=== PATIENT | male | born 1950 | race Caucasian/White ===

== ENCOUNTER 2018-02-28 13:13 | Emergency (ER) | payer MEDICARE ==
--- NOTE | 2018-02-28 13:33 | UC ---
Ear Complaint HPI - HPI Summary HPI Summary: Patient is complaining of a several week history of increasing Lasix to both ears he thinks left greater than right. States he's had S[place] his whole life. He denies any pain or drainage from the ears. - History of Current Complaint Stated Complaint: BILAT EAR COMPLAINT Time Seen by Provider: 02/28/18 13:26 Hx Obtained From: Patient Onset/Duration: Gradual Onset Aggravating Factors: Nothing Alleviating Factors: Nothing Associated Signs/Symptoms: Negative: Discharge, Hearing Loss, Foreign Body Sensation, Trauma to Ear, Swelling @ - Allergies/Home Medications Allergies/Adverse Reactions: Allergies Allergy/AdvReac Type Severity Reaction Status Date / Time haloperidol [From Haldol] Allergy Hallucinati Verified 02/28/18 13:31 ons Penicillins Allergy Hives Verified 02/28/18 13:31 quetiapine [From Seroquel] Allergy Diarrhea Verified 02/28/18 13:31 Home Medications: Home Medications Levothyroxine TAB* [Synthroid TAB*] 88 mcg PO DAILY 02/28/18 [History Confirmed 02/28/18] [place] Carbonate [[place] Carbonate 600 mg cap] 600 mg PO BID 02/28/18 [ History Confirmed 02/28/18] clonazePAM [Clonazepam] 2 mg PO DAILY 02/28/18 [History Confirmed 02/28/18] PMH/Surg Hx/FS Hx/Imm Hx Endocrine History: Thyroid Disease Psychological History: Anxiety, Depression - Family History Known Family History: Positive: Cardiac Disease, Diabetes - Social History Occupation: Retired Lives: Alone Substance Use Type: None - Immunization History Vaccination Up to Date: Yes Review of Systems Constitutional: Negative Skin: Negative Eyes: Negative ENT: Negative Respiratory: Negative Cardiovascular: Negative Gastrointestinal: Negative Genitourinary: Negative Motor: Negative Neurovascular: Negative Musculoskeletal: Negative Neurological: Negative Psychological: Negative Is Patient Immunocompromised?: No All Other Systems Reviewed And Are Negative: Yes Physical Exam Triage Information Reviewed: Yes Appearance: Well-Appearing Vital Signs Reviewed: Yes Eyes: Positive: Conjunctiva Clear ENT: Positive: Pharynx normal, Other - CERUMEN IMPACTION au. Negative: Nasal congestion, Nasal drainage Neck: Positive: Supple, Nontender, No Lymphadenopathy Respiratory: Positive: Lungs clear, Normal breath sounds Cardiovascular: Positive: RRR, No Murmur Abdomen Description: Positive: Nontender, No Organomegaly, Soft Bowel Sounds: Positive: Present Musculoskeletal: Positive: ROM Intact Neurological: Positive: Alert Psychological: Positive: Age Appropriate Behavior Skin Exam: Normal Ear Complaint Course/Dx - Course Course Of Treatment: TM's conklin and canals clear post flush - Differential Dx/Diagnosis Provider Diagnoses: CERUMEN IMPACTION au Discharge - Sign-Out/Discharge Documenting (check all that apply): Patient Departure - Discharge Plan Condition: Stable Disposition: HOME Patient Education Materials: Cerumen Impaction (ED) Referrals: Delbert Buckner MD [Primary Care Provider] - If Needed Additional Instructions: Per institutional requirements, I have reviewed the chart, however, I was not consulted specifically or made aware of this patient by the above midlevel provider. I did not personally evaluate, interact with , or disposition this patient. - Billing Disposition and Condition Condition: STABLE Disposition: Home
[2018-02-28 13:41] VITALS: BP 129/76
== END 2018-02-28 14:45 | disposition home or self-care (01) ==
LOC: UCCORT 13:13
DX: H61.23 Impacted cerumen, bilateral (principal); Z88.0 Allergy status to penicillin; Z88.8 Allergy status to other drugs, medicaments and biological substances; E07.9 Disorder of thyroid, unspecified; F41.8 Other specified anxiety disorders
CPT/HCPCS: 99213; G0463

== ENCOUNTER 2018-11-10 08:49 | Emergency (ER) | payer MEDICARE ==
--- OUTSIDE RECORDS SUMMARY | 2018-11-10 09:06 | XMS REPORT | Continuity of Care Document ---
:1950 External Reference #:[id number] Author Name Carina Griffith MD, PHD Address [address] [facility], [address] [place] [address] Care Team Providers Name Role Phone Carina Griffith MD, PHD Care Team Information Net Repairer Unavailable Carina Griffith MD, PHD Primary Care Physician Unavailable Payers Date Identification Numbers Payment Provider Subscriber Policy Number: [id number] [facility] Ricci Valencia Group Number: [id number] [address] [address] PayID: [id number] [place] [address] Expires: 2015 Policy Number: [id number] [facility] Ricci Valencia Group Number: [id number] [address] PayID: [id number] [place] [address] Advance Directives Description No Information Available Problems Date Description Provider Status Onset: 01/17/2012 Bipolar disorder Gisella Davies M.D. Active Onset: 10/23/2015 Degenerative joint disease Nahum Lock MD Active involving multiple joints Onset: 10/23/2015 Hypothyroidism Nahum Lock MD Active Onset: 10/23/2015 Anxiety Nahum Lock MD Active Onset: 10/23/2015 Atopic dermatitis Nahum Lock MD Active Onset: 10/23/2015 Chronic obstructive lung disease Nahum Lock MD Active Onset: 10/23/2015 Peripheral vascular disease Nahum Lock MD Active Note: aortofemoral bypass 1994 Onset: 10/23/2015 Adult health examination Nahum Lock MD Active Note: colo to cecum 2006 Onset: 10/23/2015 Dysphagia Nahum Lock MD Active Onset: 04/29/2017 Screening for malignant neoplasm of Bobby Zamora MD Active colon Onset: 04/29/2017 Abdominal pain Bobby Zamora MD Active Onset: 05/26/2017 Taking medication Delbert Buckner M.D. Active Onset: 05/26/2017 Abnormal glucose level Delbert Buckner M.D. Active Onset: 05/26/2017 Hyperlipidemia screening Delbert Buckner M.D. Active Onset: 05/26/2017 Encounter for screening for nutritional Delbert Buckner M.D. Active disorder Onset: 05/26/2017 Screening for malignant neoplasm of Delbert Buckner M.D. Active prostate Onset: 06/01/2017 Hyperlipidemia Delbert Buckner M.D. Active Onset: 07/25/2017 Impacted cerumen Delbert Buckner M.D. Active Onset: 07/25/2017 Eustachian tube disorder Delbert Buckner M.D. Active Onset: 09/01/2017 Vitamin D deficiency Delbert Buckner M.D. Active Onset: 09/01/2017 Low back pain Delbert Buckner M.D. Active Onset: 05/16/2018 Immunization Delbert Buckner M.D. 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 Retired Smokeless Tobacco Never Used Smokeless Tobacco ETOH Use Has consumed alcohol in QUIT age 55 the past Tobacco Use Start: Unknown End: Patient is a former QUIT age 55 Unknown smoker Recreational Drug Use Denies Drug Use Smoking Status Reviewed: 11/06/18 Patient is a former QUIT age 55 smoker Allergies, Adverse Reactions, Alerts Date Description Reaction Status Severity Comments 01/17/2012 Penicillins hepatitis Active Mild 10/23/2015 Quetiapine hepatitis Active Mild 10/23/2015 Haloperidol hepatitis Active Mild 05/26/2017 Seroquel Active Medications Medication Date Status Form Strength Qnty SIG Indications Ordering Provider D2000 Ultra 11/07/19 Active Capsules 2000Unit 60cap 2 cap by M19.90 Nacho, Strength 19 s mouth Carina, twice a , PHD day Sweet Oil 11/07/19 Active Oil 30ml 4 drops H61.23 Elisabet Griffith to each Carina ear , PHD nightly before cleaning, then twice a week. Azithromycin 11/07/19 Active Tablets 250mg 6tabs 2 tabs J18.1 Nacho the first Carina, day then , PHD 1 tab daily for 4 more days [place] Carbonate Active Capsules 300mg 360ca 4 daily Nacho ps MD Carina, PHD Clonazepam Active Tablets 1mg 60tab 1 tab by Nacho s mouth Carina, twice a , PHD day c1 blue tablet please Synthroid Active Tablets 88mcg 90tab 1 tab by Nacho, 00 s mouth Carina, every day , PHD Glucosamine Active Capsules 1500Com 3 by Unknown Chondroitin 1500 00 mouth Complex every day Aspirin Active Tablets 81mg 1 by Unknown 00 mouth every day D3 Maximum 07/26/20 Hx Capsules 5000Unit 90cap 1 cap by M1Jia.90 Ermelinda Griffith 18 - s mouth Carina, 11/07/19 every day , PHD 19 with food Aspirin 05/16/20 Hx Tablets 325mg 1 by Fernie Buckner - mouth Andganga, 06/15/20 every day M.D. 18 Methylprednisolon 05/16/20 Hx TBPK 4mg 1dose take as M54.5 santa Buckner 18 - pack directed Andras, 06/15/20 M.D. 18 Aspir-Low 01/06/20 Hx Tablets 81mg 90tab 1 by Fernie Buckner - DR s norman Andganga, 05/16/20 every day M.D. 18 Ondansetron HCL 09/01/19 Hx Tablets 4mg 14tab 1 tab Fernie Buckner - s every 8hr Andganga, 09/01/19 as needed M.D. 18 for nausea Golytely 04/29/20 Hx Solution 236gm 4000m drink Z12.11 Young 17 - Rec l half the MD Noah Unknown evening before and half the morning of the procedure (1 cup every 10') Dulcolax 04/29/20 Hx Tablets 5mg 4tabs 4 tablets Z12.11 Bobby Bean - DR albert Zamora MD Unknown 8pm the day before the procedure Magnesium Citrate 04/29/20 Hx Solution 1.745GM/3 296ml 1 bottle Z12.11 Bobby 17 - 0ML po x one MD Noah Unknown as directed Pantoprazole 04/29/20 Hx Tablets 20mg 90tab 1 by R10.9 Bobby Sodium 17 - DR s mouth MD Noah Unknown every day Triamcinolone 05/05/20 Hx Cream 0.025% 15uni Triamcino Unknown Acetonide 15 - ts lone 10/22/19 Acetonide 16 0.025 % Crea Levothyroxine 01/10/20 Hx Tablets 88mcg 90tab Synthroid Unknown Sodium 14 - s 88 mcg 10/22/19 Tabs 16 Latisse 06/15/20 Hx Solution 0.03% Latisse Unknown 13 - 0.03 % 10/22/19 Soln 16 Levothyroxine 04/07/20 Hx Tablets 100mcg 90tab 1 po qd Mckeon, Sodium 12 - s Ann 10/22/19 , 16 Levothyroxine 12/08/19 Hx Tablets 50mcg 45tab Synthroid Unknown Sodium 12 - s 50 mcg 10/22/19 Tabs 16 Levothyroxine 12/08/19 Hx Tablets 75mcg Synthroid Unknown Sodium 12 - 75 mcg 10/22/19 Tabs 16 Acetaminophen 11/25/19 Hx Tablets 500mg Tylenol Unknown 12 - Extra 01/06/20 Strength 18 500 MG Tabs Levothyroxine 04/10/20 Hx Tablets 75mcg 90tab Synthroid Unknown Sodium 10 - s 75 mcg 10/22/19 Tabs 16 Clonazepam 04/10/20 Hx Tablets 2mg 60tab Klonopin Unknown 10 - s 2 MG Tabs 10/22/19 16 Clonazepam Hx Tablets 1mg 50tab 1 tabs by Keke 00 - s mouth bid Gisella 10/22/19 as needed , 16 for anxiety/i nsomnia Aspirin Hx Tablets 325mg 30tab qd Keke 00 - s Gisella 11/16/19 , 18 Multi For Him 50+ 00/00/00 Hx Tablets 1 by Unknown 00 - mouth 04/10/20 every day 18 Immunizations CPT Code Status Date Vaccine Lot # [id number] Given 05/16/2018 Influenza Virus Vaccine, Quadrivalent, 36 Mos+, [id number] Given 06/22/2008 Pneumovax Injection Vital Signs Date Vital Result Comment 11/06/2018 2:53pm BP Systolic 111 mmHg BP Diastolic 70 mmHg Body Temperature 97.8 F Heart Rate 84 /min Respiratory Rate 18 /min Height 72 inches 6'0" Weight 198.00 lb BMI (Body Mass Index) 26.9 kg/m2 BSA (Body Surface Area) 2.12 m2 [place] body weight in kilograms 81 kg O2 % BldC Oximetry 97 % 09/18/2018 3:39pm BP Systolic 162 mmHg BP Diastolic 91 mmHg Body Temperature 96.7 F Heart Rate 77 /min Respiratory Rate 16 /min Height 72 inches 6'0" Weight 200.00 lb BMI (Body Mass Index) 27.1 kg/m2 BSA (Body Surface Area) 2.13 m2 [place] body weight in kilograms 81 kg O2 % BldC Oximetry 96 % 08/18/2018 2:31pm BP Systolic 153 mmHg BP Diastolic 92 mmHg Body Temperature 97.4 F Heart Rate 74 /min Respiratory Rate 18 /min Height 72 inches 6'0" Weight 198.00 lb BMI (Body Mass Index) 26.9 kg/m2 BSA (Body Surface Area) 2.12 m2 [place] body weight in kilograms 81 kg O2 % BldC Oximetry 96 % 07/26/2018 2:38pm BP Systolic 150 mmHg BP Diastolic 88 mmHg Body Temperature 97.5 F Heart Rate 93 /min Respiratory Rate 20 /min Height 72 inches 6'0" Weight 198.00 lb BMI (Body Mass Index) 26.9 kg/m2 BSA (Body Surface Area) 2.12 m2 [place] body weight in kilograms 81 kg O2 % BldC Oximetry 96 % 06/15/2018 11:04am BP Systolic Sitting Left Arm 132 mmHg BP Diastolic Sitting Left Arm 80 mmHg Body Temperature 97.9 F Heart Rate 71 /min Reg Respiratory Rate 18 /min Height 72 inches 6'0" Weight 198.00 lb BMI (Body Mass Index) 26.9 kg/m2 BSA (Body Surface Area) 2.12 m2 [place] body weight in kilograms 81 kg O2 % BldC Oximetry 95 % Ra 05/16/2018 10:26am BP Systolic Sitting Left Arm 137 mmHg BP Diastolic Sitting Left Arm 85 mmHg Body Temperature 97.8 F Heart Rate 82 /min Respiratory Rate 18 /min Height 72 inches 6'0" Weight 199.00 lb BMI (Body Mass Index) 27.0 kg/m2 BSA (Body Surface Area) 2.13 m2 [place] body weight in kilograms 81 kg O2 % BldC Oximetry 96 % Ra 04/10/2018 10:07am BP Systolic 133 mmHg BP Diastolic 75 mmHg Body Temperature 97.8 F Heart Rate 70 /min Respiratory Rate 18 /min Height 72 inches 6'0" Weight 198.25 lb BMI (Body Mass Index) 26.9 kg/m2 BSA (Body Surface Area) 2.12 m2 [place] body weight in kilograms 81 kg O2 % BldC Oximetry 95 % 03/02/2018 10:03am BP Systolic 134 mmHg BP Diastolic 84 mmHg Body Temperature 97.5 F Heart Rate 75 /min Respiratory Rate 18 /min Height 72 inches 6'0" Weight 194.12 lb BMI (Body Mass Index) 26.3 kg/m2 BSA (Body Surface Area) 2.10 m2 [place] body weight in kilograms 81 kg O2 % BldC Oximetry 97 % 01/05/2018 9:48am BP Systolic 137 mmHg BP Diastolic 82 mmHg Body Temperature 96.6 F Heart Rate 74 /min Respiratory Rate 18 /min Height 72 inches 6'0" Weight 194.12 lb BMI (Body Mass Index) 26.3 kg/m2 BSA (Body Surface Area) 2.10 m2 [place] body weight in kilograms 81 kg O2 % BldC Oximetry 97 % 11/15/2017 10:29am BP Systolic 138 mmHg BP Diastolic 80 mmHg Heart Rate 84 /min Respiratory Rate 16 /min Height 72 inches 6'0" Weight 193.12 lb BMI (Body Mass Index) 26.2 kg/m2 BSA (Body Surface Area) 2.10 m2 [place] body weight in kilograms 81 kg O2 % BldC Oximetry 95 % 09/01/2017 1:02pm BP Systolic 128 mmHg BP Diastolic 80 mmHg Heart Rate 72 /min Respiratory Rate 14 /min Height 72 inches 6'0" Weight 197.38 lb BMI (Body Mass Index) 26.8 kg/m2 BSA (Body Surface Area) 2.12 m2 [place] body weight in kilograms 81 kg O2 % BldC Oximetry 94 % 07/25/2017 10:39am BP Systolic 137 mmHg BP Diastolic 78 mmHg Heart Rate 71 /min Respiratory Rate 17 /min Height 72 inches 6'0" Weight 198.00 lb BMI (Body Mass Index) 26.9 kg/m2 BSA (Body Surface Area) 2.12 m2 [place] body weight in kilograms 81 kg O2 % BldC Oximetry 98 % 06/01/2017 11:35am BP Systolic 123 mmHg BP Diastolic 82 mmHg Heart Rate 78 /min Respiratory Rate 12 /min Height 72 inches 6'0" Weight 195.00 lb BMI (Body Mass Index) 26.4 kg/m2 BSA (Body Surface Area) 2.11 m2 [place] body weight in kilograms 81 kg O2 % BldC Oximetry 94 % 05/26/2017 2:57pm BP Systolic Sitting Right Arm 117 mmHg BP Diastolic Sitting Right Arm 79 mmHg Heart Rate 79 /min Respiratory Rate 18 /min Height 72 inches 6'0" Weight 194.00 lb BMI (Body Mass Index) 26.3 kg/m2 BSA (Body Surface Area) 2.10 m2 [place] body weight in kilograms 81 kg O2 % BldC Oximetry 94 % 04/29/2017 8:48am BP Systolic Sitting Left Arm 120 mmHg BP Diastolic Sitting Left Arm 78 mmHg Heart Rate 80 /min Respiratory Rate 16 /min Height 72 inches 6'0" Weight 194.00 lb BMI (Body Mass Index) 26.3 kg/m2 BSA (Body Surface Area) 2.10 m2 [place] body weight in kilograms 81 kg 10/23/2015 11:20am BP Systolic 136 mmHg BP Diastolic 76 mmHg Heart Rate 71 /min Height 72 inches 6'0" Weight 196.00 lb BMI (Body Mass Index) 26.6 kg/m2 BSA (Body Surface Area) 2.11 m2 O2 % BldC Oximetry 98 % Ra 07/15/2015 9:43am BP Systolic 123 mmHg BP Diastolic 80 mmHg Height 72 inches Weight 195.00 lb 07/15/2015 9:43am BP Diastolic 80 mmHg Body Temperature 98.6 F Heart Rate 67 /min Respiratory Rate 20 /min Height 72.00 inches 6'0.00" Weight 195.38 lb BMI (Body Mass Index) 26.54 kg/m2 BSA (Body Surface Area) 2.11 m2 O2 % BldC Oximetry 97 % 05/05/2015 2:05pm Height 72 inches Weight 193.00 lb 05/05/2015 2:05pm BP Systolic 122 mmHg BP Diastolic 74 mmHg Body Temperature 97.5 F Heart Rate 62 /min Respiratory Rate 16 /min Height 72.00 inches 6'0.00" Weight 193.38 lb BMI (Body Mass Index) 26.27 kg/m2 BSA (Body Surface Area) 2.10 m2 O2 % BldC Oximetry 97 % 01/20/2015 10:33am Height 72.00 inches 6'0.00" Weight 190.00 lb 01/20/2015 10:33am BP Systolic 129 mmHg BP Diastolic 80 mmHg Body Temperature 97.9 F Heart Rate 75 /min Respiratory Rate 16 /min Height 72 inches Weight 190.38 lb BMI (Body Mass Index) 25.86 kg/m2 BSA (Body Surface Area) 2.09 m2 O2 % BldC Oximetry 97 % 01/08/2014 9:52am Height 72 inches Weight 198.00 lb 01/08/2014 9:52am BP Systolic 115 mmHg BP Diastolic 77 mmHg Heart Rate 79 /min Respiratory Rate 14 /min Height 72.00 inches 6'0.00" Weight 198.38 lb BMI (Body Mass Index) 26.95 kg/m2 BSA (Body Surface Area) 2.12 m2 10/18/2013 3:01pm Height 72 inches Weight 202.00 lb 10/18/2013 3:01pm BP Systolic 127 mmHg BP Diastolic 82 mmHg Body Temperature 98.0 F Heart Rate 81 /min Height 72.00 inches 6'0.00" Weight 202.38 lb BMI (Body Mass Index) 27.50 kg/m2 BSA (Body Surface Area) 2.14 m2 10/03/2013 8:37am Height 72 inches Weight 200.00 lb 10/03/2013 8:37am BP Systolic 114 mmHg BP Diastolic 76 mmHg Heart Rate 75 /min Respiratory Rate 16 /min Height 72.00 inches 6'0.00" Weight 200.38 lb BMI (Body Mass Index) 27.22 kg/m2 BSA (Body Surface Area) 2.13 m2 09/10/2013 8:44am Height 72 inches Weight 203.00 lb 09/10/2013 8:44am BP Systolic 136 mmHg BP Diastolic 76 mmHg Heart Rate 75 /min Respiratory Rate 16 /min Height 72.00 inches 6'0.00" Weight 203.38 lb BMI (Body Mass Index) 27.63 kg/m2 BSA (Body Surface Area) 2.15 m2 06/25/2013 2:06pm Height 72 inches Weight 198.00 lb 06/25/2013 2:06pm BP Systolic 156 mmHg BP Diastolic 89 mmHg Heart Rate 79 /min Respiratory Rate 16 /min Height 72.00 inches 6'0.00" Weight 198.38 lb BMI (Body Mass Index) 26.95 kg/m2 BSA (Body Surface Area) 2.12 m2 05/19/2013 1:03pm Height 72 inches Weight 193.00 lb 05/19/2013 1:03pm BP Systolic 120 mmHg BP Diastolic 76 mmHg Heart Rate 80 /min Respiratory Rate 16 /min Height 72.00 inches 6'0.00" Weight 193.38 lb BMI (Body Mass Index) 26.27 kg/m2 BSA (Body Surface Area) 2.10 m2 04/23/2013 10:56am Height 72 inches Weight 194.00 lb 04/23/2013 10:56am BP Systolic 118 mmHg BP Diastolic 77 mmHg Body Temperature 97.8 F Heart Rate 71 /min Respiratory Rate 16 /min Height 72.00 inches 6'0.00" Weight 194.38 lb BMI (Body Mass Index) 26.41 kg/m2 BSA (Body Surface Area) 2.10 m2 11/24/2012 11:26am Height 72 inches Weight 194.00 lb 11/24/2012 11:26am BP Systolic 116 mmHg BP Diastolic 78 mmHg Body Temperature 98.1 F Heart Rate 79 /min Respiratory Rate 18 /min Height 72.00 inches 6'0.00" Weight 194.38 lb BMI (Body Mass Index) 26.41 kg/m2 BSA (Body Surface Area) 2.10 m2 10/23/2012 12:01pm Height 72 inches Weight 195.00 lb 10/23/2012 12:01pm BP Systolic 119 mmHg BP Diastolic 74 mmHg Heart Rate 79 /min Respiratory Rate 18 /min Height 72.00 inches 6'0.00" Weight 195.38 lb BMI (Body Mass Index) 26.54 kg/m2 BSA (Body Surface Area) 2.11 m2 08/03/2012 9:28am Height 72 inches Weight 195.00 lb 08/03/2012 9:28am BP Systolic 112 mmHg BP Diastolic 71 mmHg Body Temperature 98.0 F Heart Rate 102 /min Respiratory Rate 16 /min Height 72.00 inches 6'0.00" Weight 195.38 lb BMI (Body Mass Index) 26.54 kg/m2 BSA (Body Surface Area) 2.11 m2 07/04/2012 8:48am BP Systolic 143 mmHg BP Diastolic 80 mmHg 07/04/2012 8:48am BP Systolic 102 mmHg BP Diastolic 80 mmHg Heart Rate 76 /min Height 72 inches Weight 199.00 lb 07/04/2012 8:48am BP Systolic 112 mmHg BP Diastolic 71 mmHg Heart Rate 76 /min Respiratory Rate 16 /min Height 72.00 inches 6'0.00" Weight 199.38 lb BMI (Body Mass Index) 27.09 kg/m2 BSA (Body Surface Area) 2.13 m2 05/02/2012 5:03pm Height 72 inches Weight 192.00 lb 05/02/2012 5:03pm BP Systolic 133 mmHg BP Diastolic 84 mmHg Heart Rate 93 /min Respiratory Rate 18 /min Height 72.00 inches 6'0.00" Weight 192.38 lb BMI (Body Mass Index) 26.13 kg/m2 BSA (Body Surface Area) 2.10 m2 04/03/2012 2:30pm BP Systolic 118 mmHg BP Diastolic 72 mmHg Heart Rate 80 /min Respiratory Rate 18 /min Height 72 inches 6'0" Weight 195.00 lb 02/14/2012 1:56pm BP Systolic 114 mmHg BP Diastolic 66 mmHg Heart Rate 62 /min Height 72 inches 6'0" Weight 191.00 lb 01/17/2012 1:30pm BP Systolic 106 mmHg BP Diastolic 70 mmHg Heart Rate 72 /min Height 72 inches 6'0" Weight 194.00 lb 11/25/2011 2:47pm Height 72 inches Weight 193.00 lb 11/25/2011 2:47pm BP Systolic 117 mmHg BP Diastolic 79 mmHg Heart Rate 86 /min Respiratory Rate 18 /min Height 72.00 inches 6'0.00" Weight 193.38 lb BMI (Body Mass Index) 26.27 kg/m2 BSA (Body Surface Area) 2.10 m2 10/25/2011 2:01pm Height 72 inches Weight 193.00 lb 10/25/2011 2:01pm BP Systolic 128 mmHg BP Diastolic 81 mmHg Body Temperature 98.2 F Heart Rate 86 /min Respiratory Rate 16 /min Height 72.00 inches 6'0.00" Weight 193.38 lb BMI (Body Mass Index) 26.27 kg/m2 BSA (Body Surface Area) 2.10 m2 05/27/2011 12:46pm Height 72 inches Weight 192.00 lb 05/27/2011 12:46pm BP Systolic 121 mmHg BP Diastolic 82 mmHg Heart Rate 84 /min Respiratory Rate 20 /min Height 72.00 inches 6'0.00" Weight 192.38 lb BMI (Body Mass Index) 26.13 kg/m2 BSA (Body Surface Area) 2.10 m2 01/29/2009 3:05pm BP Systolic 120 mmHg BP Diastolic 94 mmHg Heart Rate 87 /min Height 72 inches Weight 191.00 lb Results Test Date Facility Test Result H/L Range Note Comp Metabolic Panel 08/18/2018 [facility] Glucose 89 mg/dL N 74-106 [address] [place] [address] [phone] BUN 14 mg/dL N 7-18 Creatinine 1.2 mg/dL N 0.6-1.3 Glom Filtration Rate, Estimate >60 mL/min >60 If >60 mL/min >60 2 BUN/Creat 11.6 ratio Sodium 140 mmol/L N 136-145 Potassium 4.3 mmol/L N 3.5-5.1 Chloride 109 mmol/L High 98-107 Carbon Dioxide 26 mmol/L N 21-32 Anion Gap 5 mEq/L Low 8-16 Calcium 9.6 mg/dL N 8.5-10.1 Total Protein 7.6 g/dL N 6.4-8.2 Albumin 4.1 g/dL N 3.4-5.0 Globulin 3.5 g/dL N 1.9-4.3 Alb/Glob 1.2 ratio Bilirubin,Total 1.0 mg/dL N 0.2-1.0 Sgot/Ast 19 U/L N 15-37 SGPT/Alt 35 U/L N 12-78 Alkaline Phosphatase 81 U/L N 45-117 Laboratory test 08/18/2018 [facility] Sedimentation Rate 1 mm/hr N 0-20 3 finding [address] [place] [address] [phone] Hemoglobin A1c 08/18/2018 [facility] Glycohemoglobin 5.8 % N 4.2-6.3 4 (Glyco HGB) [address] (A1c) [place], [place] [id number] [phone] eAG 120 mg/dL Laboratory test 08/18/2018 [facility] Thyroid Stim 1.25 uIU/mL N 0.30-4.[address] Hormone [place], [place] [id number] [phone] Free T4 1.02 ng/dL N 0.76-1.46 Magnesium 2.2 mg/dL N 1.8-2.4 Celiac Disease 08/18/2018 [facility] Immunoglobulin A 159 mg/dL 61-437 5 Comp AB Profile [address] [place], [place] [id number] [phone] Antigliadin Abs, IgG 2 units 0-19 6 Antigliadin Abs, IgA 3 units 0-19 7 Endomysial IgA Antibody Negative Negative t-Transglutaminase IgA <2 U/mL 0-3 8 t-Transglutaminase IgG <2 U/mL 0-5 9 CBS W/Automated 06/06/2018 [facility] White Blood 5.9 K/uL N 3.4-10.5 [address] [place] [address] [phone] Red Blood Count 4.76 M/uL N 4.20-5.80 Hemoglobin 15.0 gm/dL N 12.8-17.0 Hematocrit 47.0 % N 38.0-48.0 Mean Cell Volume 98.7 fl High 80.0-96.0 Mean Corpuscular HGB 31.5 pg N 27.0-33.0 Mean Corpuscular HGB Conc 31.9 g/dL N 31.7-36.0 Platelet Count 232 K/uL N 155-360 Red Cell Distri Width SD 49.3 fl N 36-51 Red Cell Distri Width %CV 13.8 % N 11.6-15.8 Mean Platelet Volume 10.2 fL N 6.6-10.6 Neut% 58.5 % N 33.0-73.0 Lymph % 22.3 % N 20.0-42.0 Harper % 11.1 % High 0.0-10.0 Eo% 7.4 % High 0.0-6.6 Bas% 0.7 % N 0.0-1.1 Neut# 3.47 K/uL N 1.8-7.0 Lymph # 1.32 K/uL N 1.0-4.0 Harper # 0.66 K/uL N 0.0-0.8 Eos # 0.44 K/uL N 0.0-0.5 Baso # 0.04 K/uL N 0.0-0.1 Comprehensive Metabolic 06/06/2018 [facility] Glucose 121 mg/dL High 74-[address] [place] [address] [phone] BUN 15 mg/dL N 7-18 Creatinine 1.2 mg/dL N 0.6-1.3 Glom Filtration Rate, Estimate >60 mL/min >60 If >60 mL/min >60 11 BUN/Creat 12.5 ratio Sodium 142 mmol/L N 136-145 Potassium 4.3 mmol/L N 3.5-5.1 Chloride 109 mmol/L High 98-107 Carbon Dioxide 27 mmol/L N 21-32 Anion Gap 6 mEq/L Low 8-16 Calcium 8.9 mg/dL N 8.5-10.1 Total Protein 7.4 g/dL N 6.4-8.2 Albumin 3.9 g/dL N 3.4-5.0 Globulin 3.5 g/dL N 1.9-4.3 Alb/Glob 1.1 ratio Bilirubin,Total 0.6 mg/dL N 0.2-1.0 Sgot/Ast 20 U/L N 15-37 SGPT/Alt 28 U/L N 12-78 Alkaline Phosphatase 73 U/L N 45-117 Laboratory test 06/06/2018 [facility] Thyroid Stim 0.62 uIU/mL N 0.30-4.[address] [place] [address] [phone] [place] 0.63 mmol/L N 0.60-1.20 Vitamin D,25-Hydroxy 34.6 ng/mL 30.0-100.0 12 Glycohemoglobin A1c 06/06/2018 [facility] Glycohemoglobin 6.0 % N 4.2-6.[address] (A1c) [place] [address] [phone] eAG 126 mg/dL Laboratory test 03/31/2018 [facility] [place] 0.87 mmol/L N 0.60-1.20 14 finding [address] [place], [place] [address] [phone] Thyroid Stim Hormone 0.88 uIU/mL N 0.30-4.20 Drugs Of 03/18/2018 [facility] Amphetamines Negative 15 Abuse-Urine Screen [address] [facility] (Urine) [address] [place], [place] [id number] [phone] Barbiturates (Urine) Negative Benzodiazepines (Urine) Negative Cannabinoids (Urine) Negative Cocaine Metabolite (Urine) Negative Methadone (Urine) Negative Opiates (Urine) Negative Urine Cutoffs * 16 Ua RFX Micro & Culture 03/18/2018 [facility] Urine Color YELLOW Yellow II [address] [place] [address] [phone] Urine Clarity CLEAR Clear Urine Glucose - Dipstick NEGATIVE mg/dL Negative Urine Bilirubin - Dipstick NEGATIVE Negative Urine Ketone NEGATIVE mg/dL Negative Urine Specific [place] <=1.005 Low 1.010-1.030 Urine Blood NEGATIVE Negative Urine PH 6.5 N 6.5-7.5 Urine Protein - Dipstick NEGATIVE mg/dL Negative Urine Urobilinogen - Dipstick 0.2 E.U./dL N 0.2-1.0 Urine Nitrite - Dipstick NEGATIVE Negative Urine Leuk Esterase TRACE Abnormal Negative Urine RBC 0-2 rbc/hpf 0-2 Urine WBC 0-2 wbc/hpf 0-7 Urine Epithelial Cells VERY FEW /lpf None Seen Source: URINE, CLEAN CAT <SEE NOTE> 17 Comprehensive Metabolic 03/18/2018 [facility] Glucose 105 mg/dL N 74-106 Panel [address] [place], [place] [address] [phone] BUN 10 mg/dL N 7-18 Creatinine 1.2 mg/dL N 0.6-1.3 Glom Filtration Rate, Estimate >60 mL/min >60 If >60 mL/min >60 18 BUN/Creat 8.3 ratio Sodium 142 mmol/L N 136-145 Potassium 4.6 mmol/L N 3.5-5.1 Chloride 111 mmol/L High 98-107 Carbon Dioxide 21 mmol/L N 21-32 Anion Gap 10 mEq/L N 8-16 Calcium 9.2 mg/dL N 8.5-10.1 Total Protein 7.1 g/dL N 6.4-8.2 Albumin 3.8 g/dL N 3.4-5.0 Globulin 3.3 g/dL N 1.9-4.3 Alb/Glob 1.2 ratio Bilirubin,Total 0.8 mg/dL N 0.2-1.0 Sgot/Ast 17 U/L N 15-37 SGPT/Alt 31 U/L N 12-78 Alkaline Phosphatase 70 U/L N 45-117 Laboratory test 03/18/2018 [facility] TSH Reflex 0.79 uIU/mL N 0.30-4.[address] FT4 and/[place] [address] FT3 [phone] CBS W/Automated 03/18/2018 [facility] White Blood 5.6 K/uL N 3.4-10.[address] Count [place], [place] [id number] [phone] Red Blood Count 4.69 M/uL N 4.20-5.80 Hemoglobin 15.1 gm/dL N 12.8-17.0 Hematocrit 45.7 % N 38.0-48.0 Mean Cell Volume 97.4 fl High 80.0-96.0 Mean Corpuscular HGB 32.2 pg N 27.0-33.0 Mean Corpuscular HGB Conc 33.0 g/dL N 31.7-36.0 Platelet Count 194 K/uL N 155-360 Red Cell Distri Width SD 48.1 fl N 36-51 Red Cell Distri Width %CV 13.7 % N 11.6-15.8 Mean Platelet Volume 9.8 fL N 6.6-10.6 Neut% 62.4 % N 33.0-73.0 Lymph % 18.0 % Low 20.0-42.0 Harper % 12.5 % High 0.0-10.0 Eo% 6.6 % N 0.0-6.6 Bas% 0.5 % N 0.0-1.1 Neut# 3.51 K/uL N 1.8-7.0 Lymph # 1.01 K/uL N 1.0-4.0 Harper # 0.70 K/uL N 0.0-0.8 Eos # 0.37 K/uL N 0.0-0.5 Baso # 0.03 K/uL N 0.0-0.1 Laboratory test 03/18/2018 [facility] Salicylate < 1.7 mg/dL Low 2.8-20.0 19 finding [address] [place] [address] [phone] Acetaminophen < 2.0 ug/mL Low 10.0-30.0 20 Ethyl Alcohol < 3.0 mg/dL Laboratory test 12/23/2017 [facility] Thyroid Stim 0.68 uIU/mL N 0.30-4.20 21 finding [address] [facility] [place] [place] [address] [phone] Vitamin D,25-Hydroxy 28.8 ng/mL Low 30.0-100.0 22 Comprehensive Metabolic 12/23/2017 [facility] Glucose 116 mg/dL High 74-106 Panel [address] [place] [address] [phone] BUN 13 mg/dL N 7-18 Creatinine 1.3 mg/dL N 0.6-1.3 Glom Filtration Rate, Estimate 58 mL/min >60 If >60 mL/min >60 23 BUN/Creat 10.0 ratio Sodium 140 mmol/L N 136-145 Potassium 4.3 mmol/L N 3.5-5.1 Chloride 110 mmol/L High 98-107 Carbon Dioxide 23 mmol/L N 21-32 Anion Gap 7 mEq/L Low 8-16 Calcium 9.3 mg/dL N 8.5-10.1 Total Protein 7.3 g/dL N 6.4-8.2 Albumin 3.9 g/dL N 3.4-5.0 Globulin 3.4 g/dL N 1.9-4.3 Alb/Glob 1.1 ratio Bilirubin,Total 1.4 mg/dL High 0.2-1.0 Sgot/Ast 19 U/L N 15-37 SGPT/Alt 40 U/L N 12-78 Alkaline Phosphatase 84 U/L N 45-117 Laboratory test 12/23/2017 [facility] Magnesium 2.1 mg/dL N 1.8-2.4 finding [address] [place] [address] [phone] CBS W/Automated 12/23/2017 [facility] White Blood 6.3 K/uL N 3.4-10.5 Diff [address] [facility] [place] [address] [phone] Red Blood Count 4.88 M/uL N 4.20-5.80 Hemoglobin 15.6 gm/dL N 12.8-17.0 Hematocrit 47.3 % N 38.0-48.0 Mean Cell Volume 96.9 fl High 80.0-96.0 Mean Corpuscular HGB 32.0 pg N 27.0-33.0 Mean Corpuscular HGB Conc 33.0 g/dL N 31.7-36.0 Platelet Count 242 K/uL N 155-360 Red Cell Distri Width SD 48.9 fl N 36-51 Red Cell Distri Width %CV 13.9 % N 11.6-15.8 Mean Platelet Volume 9.9 fL N 6.6-10.6 Neut% 67.0 % N 33.0-73.0 Lymph % 17.2 % Low 20.0-42.0 Harper % 9.4 % N 0.0-10.0 Eo% 5.9 % N 0.0-6.6 Bas% 0.5 % N 0.0-1.1 Neut# 4.20 K/uL N 1.8-7.0 Lymph # 1.08 K/uL N 1.0-4.0 Harper # 0.59 K/uL N 0.0-0.8 Eos # 0.37 K/uL N 0.0-0.5 Baso # 0.03 K/uL N 0.0-0.1 Laboratory test 12/23/2017 [facility] [place] 1.06 mmol/L N 0.60-1.20 finding [address] [place] [address] [phone] Laboratory test 08/26/2017 [facility] [place] 1.01 mmol/L N 0.60-1.20 24, 25 finding [address] [place] [address] [phone] Vitamin D,25-Hydroxy 29.1 ng/mL Low 30.0-100.0 26 LDL Cholesterol Profile 08/26/2017 [facility] Cholesterol 172 mg/dL <200 27 [address] [place] [address] [phone] Triglycerides 75 mg/dL <150 28 HDL Cholesterol 43 mg/dL >40 29 LDL-Cholesterol 114 mg/dL < 100 30 Laboratory test 08/26/2017 [facility] Thyroid Stim 2.83 N 0.30-4.[address] Hormone uIU/[place] [address] [phone] Xray 08/20/2017 [facility] - Radiology CT, Lumbar <pending> [address] Spine, W/0 [place] [address] Contrast [phone] Comprehensive 05/27/2017 [facility] Glucose 118 mg/dL High 74-106 32 Metabolic Panel [address] [place], [place] [id number] [phone] BUN 13 mg/dL N 7-18 Creatinine 1.1 mg/dL N 0.6-1.3 Glom Filtration Rate, Estimate >60 mL/min >60 If >60 mL/min >60 33 BUN/Creat 11.8 ratio Sodium 140 mmol/L N 136-145 Potassium 4.2 mmol/L N 3.5-5.1 Chloride 108 mmol/L High 98-107 Carbon Dioxide 27 mmol/L N 21-32 Anion Gap 5 mEq/L Low 8-16 Calcium 9.2 mg/dL N 8.5-10.1 Total Protein 7.6 g/dL N 6.4-8.2 Albumin 4.0 g/dL N 3.4-5.0 Globulin 3.6 g/dL N 1.9-4.3 Alb/Glob 1.1 ratio Bilirubin,Total 0.8 mg/dL N 0.2-1.0 Sgot/Ast 18 U/L N 15-37 SGPT/Alt 35 U/L N 12-78 Alkaline Phosphatase 85 U/L N 45-117 CBS W/Automated Diff 05/27/2017 [facility] White Blood 5.8 K/uL N 3.4-10.[address] [place] [address] [phone] Red Blood Count 5.01 M/uL N 4.20-5.80 Hemoglobin 16.1 gm/dL N 12.8-17.0 Hematocrit 48.6 % High 38.0-48.0 Mean Cell Volume 97.0 fl High 80.0-96.0 Mean Corpuscular HGB 32.1 pg N 27.0-33.0 Mean Corpuscular HGB Conc 33.1 g/dL N 31.7-36.0 Platelet Count 233 K/uL N 150-400 Red Cell Distri Width SD 49.1 fl N 36-51 Red Cell Distri Width %CV 14.0 % N 11.6-15.8 Mean Platelet Volume 9.9 fL N 6.6-10.6 Neut% 66.4 % N 33.0-73.0 Lymph % 16.2 % Low 20.0-42.0 Harper % 10.2 % High 0.0-10.0 Eo% 6.5 % N 0.0-6.6 Bas% 0.7 % N 0.0-1.1 Neut# 3.86 K/uL N 1.8-7.0 Lymph # 0.94 K/uL Low 1.0-4.0 Harper # 0.59 K/uL N 0.0-0.8 Eos # 0.38 K/uL N 0.0-0.5 Baso # 0.04 K/uL N 0.0-0.1 Laboratory test finding 05/27/2017 [facility] Magnesium 2.2 mg/dL N 1.8-2.4 [address] [place] [address] [phone] [place] 1.24 mmol/L High 0.60-1.20 Glycohemoglobin A1c 05/27/2017 [facility] Glycohemoglobin 6.0 % N 4.2-6.[address] (A1c) [place], [place] [id number] [phone] eAG 126 mg/dL Laboratory 05/27/2017 [facility] Vitamin 31.9 ng/mL 30.0-100.0 35 test finding [address] D,25[place] [address] [phone] Ua RFX Micro & 05/27/2017 [facility] Urine Color YELLOW Yellow Culture II [address] [place] [address] [phone] Urine Clarity CLEAR Clear Urine Glucose - Dipstick NEGATIVE mg/dL Negative Urine Bilirubin - Dipstick NEGATIVE Negative Urine Ketone NEGATIVE mg/dL Negative Urine Specific [place] 1.010 N 1.010-1.030 Urine Blood NEGATIVE Negative Urine PH 6.0 Low 6.5-7.5 Urine Protein - Dipstick NEGATIVE mg/dL Negative Urine Urobilinogen - Dipstick 0.2 E.U./dL N 0.2-1.0 Urine Nitrite - Dipstick NEGATIVE Negative Urine Leuk Esterase NEGATIVE Negative Source: URINE, CLEAN CAT <SEE NOTE> 36 Laboratory test 05/27/2017 [facility] HDL Cholesterol 38 mg/dL Low >40 [address] [place], [place] [id number] [phone] Direct LDL 05/27/2017 [facility] LDL Chol. 125 mg/dL High 0-99 [address] (Direct) [place] [address] [phone] Laboratory test 05/27/2017 [facility] Triglycerides 146 mg/dL <150 [address] [place] [address] [phone] Prostate Specific Antigen 1.41 ng/mL < 4.0 40 Laboratory test 05/27/2017 [facility] Thyroid Stim 1.73 uIU/mL N 0.30-4.[address] [place] [address] [phone] Lab Report: 07/17/2015 N2N/CCD Import Anion Gap 7 mEq/L Low (8-16) Basic Metabolic Panel, Thyroid Stim Ho BUN 8 mg/dL (7-18) BUN/Creat 8.0 ratio Calcium 9.3 mg/dL (8.5-10.1) Carbon Dioxide 22 mmol/L (21-32) Chloride 112 mmol/L High (98-107) Creatinine 1.0 mg/dL (0.6-1.3) Glom Filtration Rate, Estimate >60 mL/min (>60) Glucose 120 mg/dL High (74-106) If >60 mL/min (>60) [place] 0.87 mmol/L (0.60-1.20) Potassium 4.5 mmol/L (3.5-5.1) Sodium 141 mmol/L (136-145) Thyroid Stim Hormone 1.08 u[iU]/mL (0.36-3.74) Office Visit: Ov:6 mo 07/15/2015 N2N/CCD Import Dietary management T f/u education, guidance, and counseling (procedure) Documentation of current medications (procedure) Done History of tobacco use Narrative former smoker Patient advised about exercise (situation) T Office Visit: Ov: 05/05/2015 N2N/CCD Import Documentation of current Done rash medications (procedure) History of tobacco use Narrative former smoker Lab Report: A1c, CMP, TSH, 01/20/2015 N2N/CCD Import Alb/Glob 1.5 ratio [place] Albumin 4.1 g/dL (3.4-5.0) Alkaline Phosphatase 77 U/L (45-117) Anion Gap 6 mEq/L Low (8-16) BUN 14 mg/dL (7-18) BUN/Creat 12.7 ratio Bilirubin,Total 1.1 mg/dL High (0.2-1.0) Calcium 9.7 mg/dL (8.5-10.1) Carbon Dioxide 23 mmol/L (21-32) Chloride 109 mmol/L High (98-107) Creatinine 1.1 mg/dL (0.6-1.3) Globulin 2.7 (1.9-4.3) Glom Filtration Rate, Estimate >60 mL/min (>60) Glucose 86 mg/dL (74-106) Hemoglobin A1c/Hemoglobin.total in Blood 5.6 % (4.2-6.3) If >60 mL/min (>60) [place] 1.29 mmol/L High (0.60-1.20) Potassium 4.5 mmol/L (3.5-5.1) SGPT/Alt 26 U/L (12-78) Sgot/Ast 13 U/L Low (15-37) Sodium 138 mmol/L (136-145) Thyroid Stim Hormone 0.84 u[iU]/mL (0.36-3.74) Total Protein 6.8 g/dL (6.4-8.2) eAG 114 mg/dL Office Visit: Ov: re 01/20/2015 N2N/CCD Import Documentation of current Done establishing care medications (procedure) History of tobacco use Narrative former smoker Rx Refill: eRx Request for 06/29/2014 N2N/CCD Import Esm_RR See Note B 41 [place] 300MG Cap CA Rx Refill: eRx Request for 06/27/2014 N2N/CCD Import Esm_RR See Note B 42 [place] 300MG Cap CA Rx Refill: eRx Request for 04/25/2014 N2N/CCD Import Esm_RR See Note B 43 [place] 300MG Cap CA Rx Refill: eRx Request for 01/30/2014 N2N/CCD Import Esm_RR See Note B 44 [place] Carbid[place] 300M Lab Report: [place], Basic 01/09/2014 N2N/CCD Import Anion Gap 10 mEq/L (8-16) Metabolic Panel, LDL CH BUN 11 mg/dL (5-23) BUN/Creat 11.0 ratio Calcium 9.3 mg/dL (8.5-10.1) Carbon Dioxide 22 mEq/L (18-29) Chloride 111 mmol/L High (98-107) Cholesterol [Mass/volume] in Serum or Plasma 137 mg/dL (120-200) Cholesterol in HDL [Mass/volume] in Serum or Plasma 35 mg/dL (29-83) Cholesterol in LDL [Mass/volume] in Serum or Plasma 84 mg/dL (62-185) Creatinine 1.0 mg/dL (0.5-1.4) Free T4 1.10 ng/dL (0.71-1.85) Glom Filtration Rate, Estimate >60 mL/min (>60) Glucose 123 mg/dL High (76-115) If >60 mL/min (>60) [place] 0.64 mmol/L (0.60-1.20) Potassium 4.3 mmol/L (3.5-5.1) Sodium 139 mmol/L (136-145) Thyroid Stim Hormone 0.21 u[iU]/mL Low (0.49-4.67) Triglyceride [Mass/volume] in Serum or Plasma 91 mg/dL (16-231) Office Visit: Ov: 01/08/2014 N2N/CCD Import Documentation of current Done med follow up medications (procedure) History of tobacco use Narrative former smoker Office Visit: Ov: 10/18/2013 N2N/CCD Import Documentation of current Done Prevnar medications (procedure) History of tobacco use Narrative former smoker Office Visit: Ov: 10/03/2013 N2N/CCD Import Documentation of current Done follow up, ECG, ck medications (procedure) for recent la History of tobacco use Narrative former smoker Office Visit: Ov: med 09/10/2013 N2N/CCD Import Documentation of current Done follow up, med medications (procedure) refill, repea History of tobacco use Narrative former smoker Lab Report: Basic Metabolic 08/23/2013 N2N/CCD Import Anion Gap 7 mEq/L Low (8-16) Panel, TSH--0.86, Lith BUN 10 mg/dL (5-23) BUN/Creat 9.0 ratio Calcium 9.3 mg/dL (8.5-10.1) Carbon Dioxide 26 mEq/L (18-29) Chloride 110 mmol/L High (98-107) Creatinine 1.1 mg/dL (0.5-1.4) Glom Filtration Rate, Estimate >60 mL/min (>60) Glucose 74 mg/dL Low (76-115) If >60 mL/min (>60) [place] 0.94 mmol/L (0.60-1.20) Potassium 4.3 mmol/L (3.5-5.1) Sodium 139 mmol/L (136-145) Thyroid Stim Hormone 0.86 u[iU]/mL (0.49-4.67) Office Visit: 06/25/2013 N2N/CCD Import Documentation of current Done Ov:anxiety medications (procedure) Hemoglobin.gastrointestinal [Presence] in Stool guaiac negative History of tobacco use Narrative never smoker Lab Report: Basic Metabolic 05/24/2013 N2N/CCD Import Anion Gap 11 mEq/L (8-16) Panel BUN 7 mg/dL (5-23) BUN/Creat 7.0 ratio Calcium 9.7 mg/dL (8.5-10.1) Carbon Dioxide 25 mEq/L (18-29) Chloride 110 mmol/L High (98-107) Creatinine 1.0 mg/dL (0.5-1.4) Glom Filtration Rate, Estimate >60 mL/min (>60) Glucose 109 mg/dL (76-115) If >60 mL/min (>60) Potassium 4.5 mmol/L (3.5-5.1) Sodium 141 mmol/L (136-145) Office Visit: Ov:back 05/19/2013 N2N/CCD Import Documentation of current Done pain medications (procedure) History of tobacco use Narrative never smoker Lab Report: 04/23/2013 N2N/CCD Import Hemoglobin 5.4 % (4.8-6.0) A1c--5.4 A1c/Hemoglobin.total in Blood eAG 108 mg/dL Office Visit: Ov: 04/23/2013 N2N/CCD Import Documentation of current Done follow up , I6m--tphc medications (procedure) please Hemoglobin.gastrointestinal [Presence] in Stool guaiac negative History of tobacco use Narrative former smoker Lab Report: CBC, PSA 11/24/2012 N2N/CCD Import Hematocrit 45.5 % (38.0- 48.0) Hemoglobin 15.3 g/dL (12.8-17.0) Mean Cell Volume 95.6 fL (80.0-96.0) Mean Corpuscular HGB 32.1 pg (27.0-33.0) Mean Corpuscular HGB Conc 33.6 g/dL (31.7-36.0) Mean Platelet Volume 9.8 fL (6.6-10.6) PSA (Centaur CP) 0.97 ng/mL (0.0-4.0) Platelet Count 240 10*3/mm3 (150-400) Red Blood Count 4.76 M/Ul (4.20-5.80) Red Cell Distri Width %CV 13.1 % (11.6-15.8) White Blood Count 6.6 10*3/mm3 (3.4-10.5) Office Visit: 11/24/2012 N2N/CCD Import Documentation of current Done Ov:Black Stool medications (procedure) Hemoglobin.gastrointestinal [Presence] in Stool guaiac negative History of tobacco use Narrative former smoker Lab Report: Basic Metabolic 10/25/2012 N2N/CCD Import Anion Gap 12 mEq/L (8-16) Panel, LDL Cholesterol BUN 11 mg/dL (5-23) BUN/Creat 11.0 ratio Calcium 9.6 mg/dL (8.5-10.1) Carbon Dioxide 23 mEq/L (18-29) Chloride 112 mmol/L High (98-107) Cholesterol [Mass/volume] in Serum or Plasma 137 mg/dL (120-200) Cholesterol in HDL [Mass/volume] in Serum or Plasma 35 mg/dL (29-83) Cholesterol in LDL [Mass/volume] in Serum or Plasma 86 mg/dL (62-185) Creatinine 1.0 mg/dL (0.5-1.4) Glom Filtration Rate, Estimate >60 mL/min (>60) Glucose 123 mg/dL High (76-115) If >60 mL/min (>60) [place] 0.67 mmol/L (0.60-1.20) Potassium 4.5 mmol/L (3.5-5.1) Sodium 142 mmol/L (136-145) Triglyceride [Mass/volume] in Serum or Plasma 78 mg/dL (16-231) Office Visit: Ov: 10/23/2012 N2N/CCD Import Documentation of current Done medications (procedure) History of tobacco use Narrative former smoker Lab Report: 08/03/2012 N2N/CCD Import Thyroid Stim 0.58 u[iU]/mL (0.49- 4.67) TSH--0.58 Hormone Office Visit: 08/03/2012 N2N/CCD Import Documentation of Done Ov: sore current throat, body medications aches-----TSH (procedure) History of tobacco use Narrative former smoker Lab Report: A1c--5.9, HIV 07/04/2012 N2N/CCD Import Antibody Detection See Note Screen--prelim, report p Hemoglobin A1c/Hemoglobin.total in Blood 5.9 % (4.8-6.0) eAG 123 mg/dL Office Visit: Ov: 07/04/2012 N2N/CCD Import History of former smoker follow up, Labs , tobacco use BP Charlene Narrative Lab Report: HIV 07/04/2012 N2N/CCD Import HIV AB Non-Reactive Results--non-reac tive Lab Report: 05/03/2012 N2N/CCD Import Anion Gap 14 mEq/L (8-16) [place]--0.68 N, Basic Metabolic Pane BUN 12 mg/dL (5-23) BUN/Creat 12.0 ratio Calcium 8.9 mg/dL (8.5-10.1) Carbon Dioxide 21 mEq/L (18-29) Chloride 110 mmol/L High (98-107) Creatinine 1.0 mg/dL (0.5-1.4) Glom Filtration Rate, Estimate >60 mL/min (>60) Glucose 121 mg/dL High (76-115) If >60 mL/min (>60) [place] 0.68 mmol/L (0.60-1.20) Potassium 4.4 mmol/L (3.5-5.1) Sodium 141 mmol/L (136-145) Office Visit: Ov: 05/02/2012 N2N/CCD Import History of former smoker reestablish care tobacco use Narrative Laboratory test 04/03/2012 N2N/CCD Import TSH 7.34 MIU/ML High 0.34-5 finding .60 Thyroxine 5.3 g/dL 5-12 Laboratory test finding 02/14/2012 N2N/CCD Import TSH 17.79 MIU/ML High 0.34-5.60 Thyroxine 4.3 g/dL Low 5-12 Lab Report: 12/07/2011 N2N/CCD Import Thyroid Stim 0.01 Low 0.49-4.67 Thyroid Stim Hormone u[iU]/mL Hormone Office Visit: Ov: 11/25/2011 N2N/CCD Import Documentation of Done follow up current medications (procedure) Lab Report: 11/15/2011 N2N/CCD Import Alb/Glob 1.4 ratio Comprehensive Metabolic Panel, Thyroid Albumin 3.8 g/dL 3.5-5.0 Alkaline Phosphatase 57 U/L 50-136 Anion Gap 12 mEq/L 8-16 BUN 12 mg/dL 5-23 BUN/Creat 12.0 ratio Bilirubin,Total 0.8 mg/dL 0.2-1.2 Calcium 9.1 mg/dL 8.5-10.1 Carbon Dioxide 23 mEq/L 18-29 Chloride 109 mmol/L High 98-107 Creatinine 1.0 mg/dL 0.5-1.4 Globulin 2.8 1.9-4.3 Glom Filtration Rate, Estimate >60 mL/min >60 Glucose 99 mg/dL 76-115 If >60 mL/min >60 [place] 0.95 mmol/L 0.60-1.20 Potassium 4.1 mmol/L 3.5-5.1 SGPT/Alt 24 U/L Low 30-65 Sgot/Ast 14 U/L Low 16-40 Sodium 140 mmol/L 136-145 Thyroid Stim Hormone 0.01 u[iU]/mL Low 0.49-4.67 Total Protein 6.6 g/dL 6.3-8.0 Office Visit: Ov: 10/25/2011 N2N/CCD Import Documentation of Done follow up current medications (procedure) Office Visit: 05/27/2011 N2N/CCD Import Documentation of Done f/up current medications (procedure) Lab Report: Basic 05/13/2011 N2N/CCD Import Chemistry 113 mg/dL (76-115 Metabolic Panel, ) Thyroid Stim Ho Chemistry 10 mg/dL (5-23) Chemistry 0.9 mg/dL (0.5-1.4) Chemistry >60 mL/min (>60) Chemistry 11.1 ratio Chemistry 139 mmol/L (136-145) Chemistry 4.3 mmol/L (3.5-5.1) Chemistry 105 mmol/L (98-107) Chemistry 27 mmol/L (18-29) Chemistry 11 mEq/L (8-16) Chemistry 10.0 mg/dL (8.5-10.1) Chemistry 1.56 u[iU]/mL (0.49-4.67) Chemistry 0.86 ng/dL (0.71-1.85) Genetics/fertility >60 mL/min (>60) Toxicology 0.87 mEq/L (0.60-1.20) Lab Report: Basic 05/13/2011 N2N/CCD Import Hematology 5.9 10*3/mm3 (3.4 -10.5) Metabolic Panel, Thyroid Stim Ho Hematology 4.51 M/Ul (4.20-5.80) Hematology 14.2 g/dL (12.8-17.0) Hematology 42.6 % (38.0-48.0) Hematology 94.5 fL (80.0-96.0) Hematology 31.5 pg (27.0-33.0) Hematology 33.3 g/dL (31.7-36.0) Hematology 245 10*3/mm3 (150-400) Hematology 13.6 % (11.6-15.8) Hematology 10.3 fL (6.6-10.6) Lab Report: 11/03/2010 N2N/CCD Import Chemistry 9.1 mg/dL (8.5-10.1) Comprehensive Metabolic Panel, LDL Cho Chemistry 10 mEq/L (8-16) Chemistry 24 mmol/L (21-32) Chemistry 104 mmol/L (98-107) Chemistry 3.9 mmol/L (3.5-5.1) Chemistry 134 mmol/L Low (136-145) Chemistry 11.8 Chemistry >60 mL/min (>60) Chemistry 1.1 mg/dL (0.5-1.4) Chemistry 13 mg/dL (5-23) Chemistry 85 mg/dL (76-115) Chemistry * Chemistry 7.0 g/dL (6.3-8.0) Chemistry 4.0 g/dL (3.5-5.0) Chemistry 3.0 (1.9-4.3) Chemistry 1.3 Chemistry 0.7 mg/dL (0.2-1.2) Chemistry 14 U/L Low (16-40) Chemistry 33 U/L (30-65) Chemistry 72 U/L (50-136) Cholesterol [Mass/volume] in Serum or Plasma 156 mg/dL (120-200) Cholesterol in HDL [Mass/volume] in Serum or Plasma 37 mg/dL (32-96) Cholesterol in LDL [Mass/volume] in Serum or Plasma 100 mg/dL (62-185) Genetics/fertility >60 mL/min (>60) Triglyceride [Mass/volume] in Serum or Plasma 97 mg/dL (0-210) Lab Report: 10/31/2010 N2N/CCD Import Chemistry 1.42 u[iU]/mL (0.49-4.67 ) [place], Thyroid Stim Hormone, Free T4 Chemistry 0.86 ng/dL (0.71-1.85) Toxicology 0.85 mEq/L (0.60-1.20) Lab Report: Thyroid 08/10/2010 N2N/CCD Import Chemistry 0.77 ng/dL (0.71 -1.85) Stim Hormone, Free T4 Chemistry 2.06 u[iU]/mL (0.49-4.67) Lab Report: Comprehensive 08/05/2010 N2N/CCD Import Chemistry 13 U/L Low (16-40) Metabolic Panel, LDL Cho Chemistry 1.3 mg/dL High (0.2-1.2) Chemistry 1.3 Chemistry 3.1 (1.9-4.3) Chemistry 4.0 g/dL (3.5-5.0) Chemistry 7.1 g/dL (6.3-8.0) Chemistry 8.9 mg/dL (8.5-10.1) Chemistry 11 mEq/L (8-16) Chemistry 24 mmol/L (21-32) Chemistry 106 mmol/L (98-107) Chemistry 4.2 mmol/L (3.5-5.1) Chemistry 137 mmol/L (136-145) Chemistry 10.0 Chemistry >60 mL/min (>60) Chemistry 1.1 mg/dL (0.5-1.4) Chemistry * Chemistry 11 mg/dL (5-23) Chemistry 109 mg/dL (76-115) Chemistry 34 U/L (30-65) Chemistry 81 U/L (50-136) Chemistry 1.3 ng/mL (0-4.0) Cholesterol [Mass/volume] in Serum or Plasma 172 mg/dL (120-200) Cholesterol in HDL [Mass/volume] in Serum or Plasma 38 mg/dL (32-96) Cholesterol in LDL [Mass/volume] in Serum or Plasma 115 mg/dL (62-185) Genetics/fertility >60 mL/min (>60) Hematology 9.8 fL (6.6-10.6) Hematology 13.4 % (11.6-15.8) Hematology 206 10*3/mm3 (150-400) Hematology 33.7 g/dL (31.7-36.0) Hematology 32.3 pg (27.0-33.0) Hematology 95.9 fL (80.0-96.0) Hematology 43.9 % (38.0-48.0) Hematology 14.8 g/dL (12.8-17.0) Hematology 4.58 M/Ul (4.20-5.80) Hematology 6.5 10*3/mm3 (3.4-10.5) Toxicology 0.77 mEq/L (0.60-1.20) Triglyceride [Mass/volume] in Serum or Plasma 93 mg/dL (0-210) Preload: Preload 01/01/2009 N2N/CCD Import Chemistry 0.24 u[iU]/mL Preload: Preload 05/21/2008 N2N/CCD Import Chemistry 114 1 E03.9, K58.0 2 Note: Persistent reduction for 3 months or more in an eGFR <60 mL/min/1.73 m2 defines CKD. Patients with eGFR values >/=60 mL/min/1.73 m2 may also have CKD if evidence of persistent proteinuria is present. The original MDRD equation for estimated GFR is not valid for patients less than 18 years of age. Additional information may be found at www.kdoqi.org. 3 Method: Sediplast Modified Connorergren 4 Elevated levels of HbA1c suggest the need for more aggressive treatment of glycemia. The [place] [employer] recommends that a primary goal of therapy should be a HbA1c of <7% and that physicians should re-evaluate the treatment regimen in patients with HbA1c values consistently >8%. 5 Performed at: RN - [facility] [address] [id number] Stereo Map Plotter Operator: Nuvia Lal MD, Phone: [phone] 6 Negative 0 - 19 Weak Positive 20 - 30 Moderate to Strong Positive >30 7 Negative 0 - 19 Weak Positive 20 - 30 Moderate to Strong Positive >30 8 Negative 0 - 3 Weak Positive 4 - 10 Positive >10 Tissue Transglutaminase (tTG) has been identified as the endomysial antigen. Studies have demonstr- ated that endomysial IgA antibodies have over 99% specificity for gluten sensitive enteropathy. 9 Negative 0 - 5 Weak Positive 6 - 9 Positive >9 10 Z79.899 E03.9 E55.9 R73.09 11 Note: Persistent reduction for 3 months or more in an eGFR <60 mL/min/1.73 m2 defines CKD. Patients with eGFR values >/=60 mL/min/1.73 m2 may also have CKD if evidence of persistent proteinuria is present. The original MDRD equation for estimated GFR is not valid for patients less than 18 years of age. Additional information may be found at www.kdoqi.org. 12 Vitamin D deficiency has been defined by the [place] of [employer] and an Endocrine Society practice guideline as a level of serum 25-OH vitamin D less than 20 ng/mL (1,2). The Endocrine Society went on to further define vitamin D insufficiency as a level between 21 and 29 ng/mL (2). 1. IOM ([place] [employer]). 2010. Dietary reference intakes for calcium and D. [place]: The National Academies Press. 2. Saurav MF, Maria Del Rosario [place], Rock MCGUIRE, et al. Evaluation, treatment, and prevention of vitamin D deficiency: an Endocrine Society clinical practice guideline. JCEM. 2010; 96(7):1911-30. Performed at: RN - [facility] [address] [id number] Stereo Map Plotter Operator: Nuvia Lal MD, Phone: [phone] 13 Elevated levels of HbA1c suggest the need for more aggressive treatment of glycemia. The [place] [employer] recommends that a primary goal of therapy should be a HbA1c of <7% and that physicians should re-evaluate the treatment regimen in patients with HbA1c values consistently >8%. 14 F31.9,Z79.899,E03.9 15 EVAL 16 URINE SPECIMENS ARE SCREENED AT THE LISTED CUTOFFS DRUG CLASS INITIAL TEST LEVEL Amphetamines 1000 ng/mL Barbiturates 200 ng/mL Benzodiazepines 200 ng/mL Cannabinoids 50 ng/mL Cocaine Metabolite 300 ng/mL Methadone 300 ng/mL Opiates 300 ng/mL Any PRESUMPTIVE POSITIVE findings are UNCONFIRMED. Confirmatory testing is suggested if findings are unexpected. Please contact laboratory if confirmatory testing is desired. SPECIMENS ARE HELD FOR 72 HOURS. 17 URINE, CLEAN CATCH 18 Note: Persistent reduction for 3 months or more in an eGFR <60 mL/min/1.73 m2 defines CKD. Patients with eGFR values >/=60 mL/min/1.73 m2 may also have CKD if evidence of persistent proteinuria is present. The original MDRD equation for estimated GFR is not valid for patients less than 18 years of age. Additional information may be found at www.kdoqi.org. 19 THERAPEUTIC RANGE: 15-30 mg/dL POTENTIAL TOXICITY VARIES WITH TIME FROM INGESTION. PLEASE CONSULT APPROPRIATE NOMOGRAM. 20 Acetaminophen concentration >150 ug/mL at four hours after ingestion and 50.0 ug/mL at twelve hours after ingestion are often associated with toxic reactions. 21 E03.9 E55.9 Z79.899 22 Vitamin D deficiency has been defined by the [place] [employer] and an Endocrine Society practice guideline as a level of serum 25-OH vitamin D less than 20 ng/mL (1,2). The Endocrine Society went on to further define vitamin D insufficiency as a level between 21 and 29 ng/mL (2). 1. IOM ([place] [employer]). 2010. Dietary reference intakes for calcium and D. [place]: The National Academies Press. 2. Saurav MF, Maria Del Rosario [place], Rock MCGUIRE, et al. Evaluation, treatment, and prevention of vitamin D deficiency: an Endocrine Society clinical practice guideline. JCEM. 2010; 96(7):1911-30. Performed at: RN - [facility] [address] [id number] Stereo Map Plotter Operator: Nuvia Lal MD, Phone: [phone] 23 Note: Persistent reduction for 3 months or more in an eGFR <60 mL/min/1.73 m2 defines CKD. Patients with eGFR values >/=60 mL/min/1.73 m2 may also have CKD if evidence of persistent proteinuria is present. The original MDRD equation for estimated GFR is not valid for patients less than 18 years of age. Additional information may be found at www.kdoqi.org. 24 E03.9 E78.5 Z79.899 25 [id number] Is Patient Fasting? Fasting 26 Vitamin D deficiency has been defined by the [place] of Medicine and an Endocrine Society practice guideline as a level of serum 25-OH vitamin D less than 20 ng/mL (1,2). The Endocrine Society went on to further define vitamin D insufficiency as a level between 21 and 29 ng/mL (2). 1. IOM ([place] of Medicine). 2010. Dietary reference intakes for calcium and D. [place]: The National Academies Press. 2. Saurav MF, Maria Del Rosario GARAY, Rock MCGUIRE, et al. Evaluation, treatment, and prevention of vitamin D deficiency: an Endocrine Society clinical practice guideline. JCEM. 2010; 96(7):1911-30. Performed at: RN - [facility] [address] [id number] Stereo Map Plotter Operator: Nuvia Lal MD, Phone: [phone] Reference Guidelines*: Desirable: ........... < 200 mg/dL Borderline High: ..... 200-239 mg/dL High: ................ >=240 mg/dL * The National Cholesterol Education Program (NCEP) 28 Reference Guidelines*: Normal: ............. < 150 mg/dL Borderline High: .... 150-199 mg/dL High: ............... 200-499 mg/dL Very High: .......... > 500 mg/dL * Source: National Cholesterol Education Program (NCEP) 29 Reference Guidelines*: Low HDL: ..... < 40 mg/dL Normal: ..... 40-60 mg/dL Desirable: ... > 60 mg/dL *The National Cholesterol Education Program(NCEP) 30 Reference Guidelines*: Optimal:........... <100 mg/dL Near Optimal....... 100-129 mg/dL Borderline High.... 130-159 mg/dL High............... 160-189 mg/dL Very High.......... >=190 mg/dL * Source: National Cholesterol Education Program (NCEP) 31 [phone] 32 E03.9 Z79.899 R73.09 Z13.21 Z13.220 Z12.5 33 Note: Persistent reduction for 3 months or more in an eGFR <60 mL/min/1.73 m2 defines CKD. Patients with eGFR values >/=60 mL/min/1.73 m2 may also have CKD if evidence of persistent proteinuria is present. The original MDRD equation for estimated GFR is not valid for patients less than 18 years of age. Additional information may be found at www.kdoqi.org. 34 Elevated levels of HbA1c suggest the need for more aggressive treatment of glycemia. The [place] Diabetes Association recommends that a primary goal of therapy should be a HbA1c of <7% and that physicians should re-evaluate the treatment regimen in patients with HbA1c values consistently >8%. 35 Vitamin D deficiency has been defined by the [place] of [employer] and an Endocrine Society practice guideline as a level of serum 25-OH vitamin D less than 20 ng/mL (1,2). The Endocrine Society went on to further define vitamin D insufficiency as a level between 21 and 29 ng/mL (2). 1. IOM ([place] of [place]). 2010. Dietary reference intakes for calcium and D. [place]: The National Academies Press. 2. Saurav MF, Maria Del Rosario [place], Rock MCGUIRE, et al. Evaluation, treatment, and prevention of vitamin D deficiency: an Endocrine Society clinical practice guideline. JCEM. 2010; 96(7):1911-30. Performed at: RN - [facility] [address] [id number] Stereo Map Plotter Operator: Nuvia Lal MD, Phone: [phone] URINE, CLEAN CATCH 37 Reference Guidelines*: Low HDL: ..... < 40 mg/dL Normal: ..... 40-60 mg/dL Desirable: ... > 60 mg/dL *The National Cholesterol Education Program(NCEP) 38 Performed at: NE[facility] [address] [id number] Stereo Map Plotter Operator: Nuvia Lal MD, Phone: [phone] Reference Guidelines*: Normal: ............. < 150 mg/dL Borderline High: .... 150-199 mg/dL High: ............... 200-499 mg/dL Very High: .......... > 500 mg/dL * Source: National Cholesterol Education Program (NCEP) 40 THIS ASSAY IS NOT INTENDED A CANCER SCREENING TEST The concentration of PSA in a given specimen, determined with assays from different manufacturers, can vary due to differences in assay methods and reagent specificity. Values obtained from different assay methods cannot be used interchangeably. Method: The [employer] [place] Chemiluminescent immunoassay. 41 [id number]`[place] 300MG Cap Carb```360``Take 2 capsules by mouth twice a day```0`20140130`20140425`[facility]*`[id number]`` 42 [id number]`[place] 300MG Cap Carb```360``Take 2 capsules by mouth twice a day```0`20140130`20140425`[facility]*`153.947.4203`[id number]`` 43 [id number]`[place] 300MG Cap Carb```360``Take 2 capsules by mouth twice a day```0`20140130`20140425`[facility]*`318.986.4080`[id number]`` 44 [id number]`[place] 300MG Cap```360``Take 2 capsules by mouth twice a day```0`20130813`20131015`[facility]*`[id number]`[id number]`` Procedures Date Code Description Status 04/03/2012 03641 Remove Impacted Cerumen Completed 01/25/2007 88240 Colonoscopy With Polypectomy Completed 01/25/2007 76874362 Colonoscopy Completed 74486 Colonoscopy Completed Encounters Type Date Location Provider Dx Diagnosis Office Visit 11/06/2018 Family Carina Salinas, J18.1 Lobar pneumonia, 2:45p Leon Cade MD, PHD unspecified organism H61.23 Impacted cerumen, bilateral F41.9 Anxiety disorder, unspecified F51.04 Psychophysiologic insomnia F31.9 Bipolar disorder, unspecified Office Visit 09/18/2018 Family Griffith F51.04 Psychophysiologic 3:15p Medicine Leon Lim MD, insomnia Main PHD F31.9 Bipolar disorder, unspecified Office Visit 08/18/2018 2:30p [facility] Anand Griffith F31.9 Bipolar disorder, [place] Rayo Lim MD, unspecified PHD K21.9 Gastro-esophageal reflux disease without esophagitis K58.0 Irritable bowel syndrome with diarrhea M19.90 Unspecified osteoarthritis, unspecified site E03.9 Hypothyroidism, unspecified R73.01 Impaired fasting glucose Office Visit 07/26/2018 Family Griffith M19.90 Unspecified 2:45p Medicine Leon Lim MD, osteoarthritis, Main PHD unspecified site Office Visit 06/15/2018 Primary Care Delbert Buckner F41.9 Anxiety disorder , 10:40a Office M.D. unspecified E55.9 Vitamin D deficiency, unspecified E03.9 Hypothyroidism, unspecified E78.5 Hyperlipidemia, unspecified Z12.5 Encounter for screening for malignant neoplasm of prostate R73.09 Other abnormal glucose Z79.899 Other correction (current) drug therapy Office Visit 05/16/2018 10:00a Primary Care Delbert Buckner M54.5 Low back pain Office M.D. Z23 Encounter for immunization Office Visit 04/10/2018 10:40a Primary Care Delbert Buckner Z79.899 Other correction Office M.D. (current) drug therapy F41.9 Anxiety disorder, unspecified F31.9 Bipolar disorder, unspecified E03.9 Hypothyroidism, unspecified Office Visit 03/02/2018 10:00a Primary Care Delbert Buckner Z79.899 Other quality liaison Office M.D. (current) drug therapy F41.9 Anxiety disorder, unspecified Office Visit 01/05/2018 9:40a Primary Care Delbert Buckner F31.9 Bipolar disorder, Office M.D. unspecified E03.9 Hypothyroidism, unspecified E55.9 Vitamin D deficiency, unspecified R73.09 Other abnormal glucose Z79.899 Other quality liaison (current) drug therapy Office Visit 11/15/2017 10:30a Primary Care Suzie Justice, M54.5 Low back pain Office M.D. R10.9 Unspecified abdominal pain Office Visit 09/01/2017 1:00p Primary Care Delbert Buckner, Z79.899 Other quality liaison Office M.D. (current) drug therapy E55.9 Vitamin D deficiency, unspecified E03.9 Hypothyroidism, unspecified M54.5 Low back pain F31.9 Bipolar disorder, unspecified Office Visit 07/25/2017 10:40a Primary Care Delbert Buckner, H61.23 Impacted cerumen, Office M.D. bilateral H69.92 Unspecified Eustachian tube disorder, left ear Office Visit 06/01/2017 11:20a Primary Care Delbert Buckner F31.9 Bipolar disorder, Office M.D. unspecified E03.9 Hypothyroidism, unspecified R73.09 Other abnormal glucose E78.5 Hyperlipidemia, unspecified Z79.899 Other correction (current) drug therapy Office Visit 05/26/2017 2:40p Primary Care Delbert Buckner, E03.9 Hypothyroidism, Office M.D. unspecified E03.9 Hypothyroidism, unspecified F31.9 Bipolar disorder, unspecified F31.9 Bipolar disorder, unspecified Z79.899 Other quality liaison (current) drug therapy R73.09 Other abnormal glucose R73.09 Other abnormal glucose Z13.21 Encounter for screening for nutritional disorder Z13.220 Encounter for screening for lipoid disorders Z12.5 Encounter for screening for malignant neoplasm of prostate Office Visit 04/29/2017 8:30a SILVESTRE Zamora MD Z12.11 Encounter for screening for malignant neoplasm of colon R10.9 Unspecified abdominal pain R13.10 Dysphagia, unspecified Office Visit 10/23/2015 11:15a Nahum Joyner MD R13.10 Dysphagia, unspecified Z12.11 Encounter for screening for malignant neoplasm of colon Plan of Treatment Future Appointment(s):11/09/2018 1:00 pm - Carina Griffith MD, PHD at [facility]01/24/2019 8:30 am - Carina Griffith MD, PHD at [facility]11/06/2018 - Carina Griffith MD, PHDJ18.1 Lobar pneumonia, unspecified organismNew Medication:Azithromycin 250 mg - 2 tabs the first day then 1 tab daily for 4 more daysH61.23 Impacted cerumen, bilateralNew Medication :Sweet Oil - 4 drops to each ear nightly before cleaning, then twice a week.Follow up:Next visit is for ear cleaning, cerumen removal.F41.9 Anxiety disorder, dpugvzuqdidN27.04 Psychophysiologic mrlutnzpL61.9 Bipolar disorder, unspecified
[2018-11-10 09:13] VITALS: BP 158/67
--- NOTE | 2018-11-10 11:04 | UC ---
Respiratory Complaint HPI - HPI Summary HPI Summary: cough x 2 weeks cough is productive, with yellow sputum nasal congestion, pnd no fever, no chills, no sob, bilateral ear plugged - History of Current Complaint Chief Complaint: UCRespiratory Stated Complaint: COUGH,EAR PAIN Time Seen by Provider: 11/10/18 09:34 Hx Obtained From: Patient Onset/Duration: Gradual Onset, Lasting Weeks - 2, Still Present Timing: Constant Severity Initially: Moderate Severity Currently: Moderate Pain Intensity: 0 Pain Scale Used: 0-10 Numeric Character: Cough: Productive Aggravating Factors: Exertion, Deep Breaths Associated Signs And Symptoms: Positive: URI, Nasal Congestion. Negative: Dyspnea, Fever, Chills, Wheezing, Calf Pain, Calf Swelling - Allergies/Home Medications Allergies/Adverse Reactions: Allergies Allergy/AdvReac Type Severity Reaction Status Date / Time haloperidol [From Haldol] Allergy Hallucinati Verified 11/10/18 09:07 ons Penicillins Allergy Hives Verified 11/10/18 09:07 quetiapine [From Seroquel] Allergy Diarrhea Verified 11/10/18 09:07 PMH/Surg Hx/FS Hx/Imm Hx Psychological History: Depression, Bipolar Disorder - Surgical History Surgical History: Yes Surgery Procedure, Year, and Place: lower leg arterial bipass. T&A. teeth - Family History Known Family History: Positive: Cardiac Disease, Diabetes - Social History Alcohol Use: None Substance Use Type: None Smoking Status (MU): Former Smoker When Did the Patient Quit Smoking/Using Tobacco: 2004 - Immunization History Vaccination Up to Date: Yes Review of Systems All Other Systems Reviewed And Are Negative: Yes Constitutional: Positive: Negative Skin: Positive: Negative Eyes: Positive: Negative ENT: Positive: Nasal Discharge Respiratory: Positive: Cough Cardiovascular: Positive: Negative Gastrointestinal: Positive: Negative Is Patient Immunocompromised?: No Physical Exam Triage Information Reviewed: Yes Appearance: Well-Appearing, No Pain Distress, Well-Nourished Vital Signs: Initial Vital Signs Temp 98.2 F 11/10/18 09:08 Pulse 85 11/10/18 09:08 Resp 16 11/10/18 09:08 BP 158/67 11/10/18 09:08 Pulse Ox 98 11/10/18 09:08 Vital Signs Reviewed: Yes Eye Exam: Normal Eyes: Positive: Conjunctiva Clear ENT Exam: Normal ENT: Positive: Normal ENT inspection, Hearing grossly normal, Pharynx normal, Other - bilateral cerumen impaction was removed by irrigation Procedures - Procedure Summary Procedure Summary: rmoval of cerumen impaction both ears cerumen was removed using ear irrigation with plane water Respiratory Course/Dx - Differential Dx/Diagnosis Provider Diagnosis: Bronchitis, Cerumen impaction Discharge - Sign-Out/Discharge Documenting (check all that apply): Patient Departure All imaging exams completed and their final reports reviewed: No Studies - Discharge Plan Condition: Stable Disposition: HOME Prescriptions: Azithromycin TAB* [Zithromax TAB (Z-TONY) 250 mg #6 tabs] 2 tab PO .TODAY, THEN 1 DAILY #1 tony Benzonatate CAP* [Tessalon 100 MG CAP*] 100 mg PO TID #21 cap Patient Education Materials: Acute Bronchitis (ED) Referrals: Dashawn Naranjo MD [Primary Care Provider] - - Billing Disposition and Condition Condition: STABLE Disposition: Home
== END 2018-11-10 10:03 | disposition home or self-care (01) ==
LOC: UCCORT 08:49
DX: J40 Bronchitis, not specified as acute or chronic (principal); H61.23 Impacted cerumen, bilateral; Z88.0 Allergy status to penicillin; Z88.8 Allergy status to other drugs, medicaments and biological substances; Z87.891 Personal history of nicotine dependence
CPT/HCPCS: 99212; G0463

== ENCOUNTER 2019-05-19 13:30 | Emergency (ER) | payer MEDICARE ==
--- OUTSIDE RECORDS SUMMARY | 2019-05-19 13:55 | XMS REPORT | Continuity of Care Document ---
:1950 External Reference #:[id number] Author Name Camille Light PA Address [address] [place] [address] Care Team Providers Name Role Phone Camille Light PA - Medical Care Team Information Ad Writer [phone] Problems Active Problems Provider Date Bipolar disorder Gisella Davies M.D. Onset: 01/17/2012 Hypothyroidism Nahum Lock MD Onset: 10/23/2015 Anxiety Nahum Lock MD Onset: 10/23/2015 Atopic dermatitis Nahum Lock MD Onset: 10/23/2015 Social History Type Date Description Comments Sex Unknown Tobacco Use Start: Unknown End: Former Cigarette Smoker Unknown Smoking Status Reviewed: 04/18/19 Former Cigarette Smoker Smokeless Tobacco Never Used Smokeless Tobacco ETOH Use Has consumed alcohol in the QUIT age 55 past Tobacco Use Start: Unknown End: Patient is a former smoker QUIT age 55 Unknown Recreational Drug Use Denies Drug Use Allergies, Adverse Reactions, Alerts Active Allergies Reaction Severity Comments Date Penicillins hepatitis Mild 01/17/2012 Quetiapine hepatitis Mild 10/23/2015 Haloperidol hepatitis Mild 10/23/2015 Seroquel 05/26/2017 Medications Active Medications SIG Qnty Indications Ordering Provider Date Alclometasone twice a day as 45gm L20.9 Carmenza Mckinney, 03/16/2019 Dipropionate needed for up MD 0.05% to 14 days. Ointment [place] Carbonate 4 daily 360caps Carina Griffith, 300mg , PHD Capsules Clonazepam 1 tab by mouth 60tabs Carmenza Mckinney, 1mg Tablets twice a day c1 MD blue tablet please Ref #[id number] Synthroid 1 tab by mouth 90tabs Carina Griffith, 88mcg Tablets every day , PHD Glucosamine 3 by mouth Unknown Chondroitin 1500 every day Complex 1500Com Capsules Aspirin 1 by mouth Unknown 81mg Tablets every day Centrum Adults 1 by mouth Unknown Tablets daily History Medications D2000 Ultra Strength 2 cap by mouth 60caps M19.90 Carina Griffith, 2018 - twice a day , PHD 03/16/2019 2000Unit Capsules Sweet Oil 4 drops to each 30ml H61.23 Carina Griffith, 11/06/2018 - Oil ear nightly , PHD 03/16/2019 before cleaning, then twice a week. Azithromycin 2 tabs the first 6tabs J18.1 Carina Griffith, 11/06/2018 - 250mg day then 1 tab MD PHD 03/16/2019 Tablets daily for 4 more days Immunizations CPT Code Status Date Vaccine Lot # 52729 Given 05/16/2018 Influenza Virus Vaccine, Quadrivalent, 36 Mos+, [id number] Given 06/22/2008 Pneumovax Injection Vital Signs Date Vital Result Comment 04/18/2019 12:56pm BP Systolic 132 mmHg BP Diastolic 68 mmHg Body Temperature 97.0 F Heart Rate 70 /min Respiratory Rate 18 /min Height 71.5 inches 5'11.50" Weight 195.25 lb BMI (Body Mass Index) 26.8 kg/m2 BSA (Body Surface Area) 2.10 m2 [place] body weight in kilograms 79 kg O2 % BldC Oximetry 98 % 03/16/2019 11:20am BP Systolic 118 mmHg BP Diastolic 62 mmHg Body Temperature 98.0 F Heart Rate 67 /min Respiratory Rate 17 /min Height 71.5 inches 5'11.50" Weight 198.00 lb BMI (Body Mass Index) 27.2 kg/m2 BSA (Body Surface Area) 2.11 m2 [place] body weight in kilograms 79 kg O2 % BldC Oximetry 97 % Results Test Date Facility Test Result H/L Range Note CBC 03/24/2019 [facility] White Blood 7.4 K/uL Normal 3.4-10.5 1 W/Automated [address] [place] [address] [phone] Red Blood Count 4.59 M/uL Normal 4.20-5.80 Hemoglobin 14.8 gm/dL Normal 12.8-17.0 Hematocrit 44.1 % Normal 38.0-48.0 Mean Cell Volume 96.1 fl High 80.0-96.0 Mean Corpuscular HGB 32.2 pg Normal 27.0-33.0 Mean Corpuscular HGB Conc 33.6 g/dL Normal 31.7-36.0 Platelet Count 217 K/uL Normal 155-360 Red Cell Distri Width SD 46.6 fl Normal 36-51 Red Cell Distri Width %CV 13.2 % Normal 11.6-15.8 Mean Platelet Volume 9.4 fl Normal 6.6-10.6 Neut% 65.2 % Normal 33.0-73.0 Lymph % 17.4 % Low 20.0-42.0 [place] % 9.1 % Normal 0.0-10.0 Eo% 7.1 % High 0.0-6.6 Bas% 1.1 % Normal 0.0-1.1 Immature Grans 0.1 % Normal 0.0-5.0 NRBC % 0.0 /100WBC < 10/ 100 WBC Neut# 4.80 K/uL Normal 1.8-7.0 Lymph # 1.28 K/uL Normal 1.0-4.0 [place] # 0.67 K/uL Normal 0.0-0.8 Eos # 0.52 K/uL High 0.0-0.5 Baso # 0.08 K/uL Normal 0.0-0.1 Immature Grans Absolute 0.01 K/uL NRBC # 0.00 K/uL Basic Metabolic Panel 03/24/2019 [facility] Glucose 89 mg/dL Normal 74-106 [address] [place] [address] [phone] BUN 13 mg/dL Normal 7-18 Creatinine 1.0 mg/dL Normal 0.6-1.3 Glom Filtration Rate, Estimate >60 mL/min >60 If >60 mL/min >60 2 BUN/Creat 13.0 ratio Sodium 138 mmol/L Normal 136-145 Potassium 3.9 mmol/L Normal 3.5-5.1 Chloride 110 mmol/L High 98-107 Carbon Dioxide 19 mmol/L Low 21-32 Anion Gap 9 mEq/L Normal 8-16 Calcium 9.6 mg/dL Normal 8.5-10.1 Occult 03/24/2019 [facility] Stool Occult NEGATIVE Negative 3 Blood,Stool [address] [place] [address] Spec [phone] LDL Cholesterol 03/17/[address] [facility] [address] Cholesterol 164 mg/dL <200 4, [address] [place] [address] [phone] Triglycerides 87 mg/dL <150 6 HDL Cholesterol 43 mg/dL >40 7 LDL-Cholesterol 104 mg/dL < 100 8 Laboratory test 03/17/[address] [facility] [address] Thyroid 0.62 Normal 0.30- 4.[address] Stim uIU/[place] [address] Hormone [phone] 1 MCGUIRE,WEAK,BOWEL ORANGEY RED,WHEN WIPES ITS RED 2 Note: Persistent reduction for 3 months or more in an eGFR <60 mL/min/1.73 m2 defines CKD. Patients with eGFR values >/=60 mL/min/1.73 m2 may also have CKD if evidence of persistent proteinuria is present. The original MDRD equation for estimated GFR is not valid for patients less than 18 years of age. Additional information may be found at www.kdoqi.org. 3 Method: [employer] Hemoccult Card 4 E78.5, E03.9 5 Reference Guidelines*: Desirable: ........... < 200 mg/dL Borderline High: ..... 200-239 mg/dL High: ................ >= 240 mg/dL * The National Cholesterol Education Program (NCEP) 6 Reference Guidelines*: Normal: ............. < 150 mg/dL Borderline High: .... 150-199 mg/dL High: ............... 200-499 mg/dL Very High: .......... > 500 mg/dL * Source: National Cholesterol Education Program (NCEP) 7 Reference Guidelines*: Low HDL: ..... < 40 mg/dL Normal: ..... 40-60 mg/dL Desirable: ... > 60 mg/dL *The National Cholesterol Education Program(NCEP) 8 Reference Guidelines*: Optimal:........... <100 mg/dL Near Optimal....... 100-129 mg/dL Borderline High.... 130-159 mg/dL High............... 160-189 mg/dL Very High.......... >=190 mg/dL * Source: National Cholesterol Education Program (NCEP) Procedures Date Code Description Status 01/25/2007 97083114 Colonoscopy Completed Medical Devices Description No Information Available Encounters Type Date Location Provider Dx Diagnosis Office Visit 03/16/2019 Family Medicine Camille Light PA Z12.11 Encounter for 11:00a [facility] screening for malignant neoplasm of colon E03.9 Hypothyroidism, unspecified E78.5 Hyperlipidemia, unspecified L20.9 Atopic dermatitis, unspecified Office Visit 11/06/2018 2:45p Family Medicine Michael Griffith18.1 Lobar pneumonia, [facility] MD Carina, unspecified PHD organism H61.23 Impacted cerumen, bilateral F41.9 Anxiety disorder, unspecified F51.04 Psychophysiologic insomnia F31.9 Bipolar disorder, unspecified Assessments Date Code Description Provider 04/18/2019 D49.0 Neoplasm of unspecified behavior of Camille Light PA digestive system 04/18/2019 R03.0 Elevated blood-pressure reading, without Camille Light PA diagnosis of hypertension 03/16/2019 Z12.11 Encounter for screening for malignant Camille Light PA neoplasm of colon 03/16/2019 E03.9 Hypothyroidism, unspecified Camille Light PA 03/16/2019 E78.5 Hyperlipidemia, unspecified Camille Light PA 03/16/2019 L20.9 Atopic dermatitis, unspecified Camille Light PA 11/29/2018 F31.0 Bipolar disorder, current episode Chas Biggs M.D. hypomanic 11/29/2018 G47.00 Insomnia, unspecified Chas Biggs M.D. 11/28/2018 F31.0 Bipolar disorder, current episode Chas Biggs M.D. hypomanic 11/28/2018 G47.00 Insomnia, unspecified Chas Biggs M.D. 11/27/2018 I10 Essential (primary) hypertension Tyrone Olivo M.D. 11/06/2018 J18.1 Lobar pneumonia, unspecified organism Carina Griffith MD, PHD 11/06/2018 H61.23 Impacted cerumen, bilateral Carina Griffith MD, PHD 11/06/2018 F41.9 Anxiety disorder, unspecified Carina Griffith MD, PHD 11/06/2018 F51.04 Psychophysiologic insomnia Carina Griffith MD, PHD 11/06/2018 F31.9 Bipolar disorder, unspecified Carina Griffith MD, PHD Plan of Treatment Future Appointment(s):06/18/2019 10:00 am - Camille Light PA at [facility]04/18/2019 - Camille Light, PAD49.0 Neoplasm of unspecified behavior of digestive systemComments:External hemorrhoid. Bleeding has stopped and no pain today. Drink plenty of water and maintain regular soft stools. Follow up with Dr. Trotter and planned.R03.0 Elevated blood-pressure reading, without diagnosis of hypertensionComments:Elevated BP at Er. However, BP has returned to baseline and patient reports he is feeling well. Functional Status Description No Information Available Mental Status Description No Information Available Referrals Refer to Reason for Referral Status Appt Date David Trotter MD Scheduled 05/16/2019 [facility] [place] [address] [phone]
--- NOTE | 2019-05-19 14:14 | UC ---
Ear Complaint HPI - HPI Summary HPI Summary: Pt here for earwax buildup, no recent illness or cold symptoms. - History of Current Complaint Stated Complaint: BILATERAL EAR COMPLAINT Time Seen by Provider: 05/19/19 13:54 Hx Obtained From: Patient Onset/Duration: Gradual Onset, Lasting Weeks Severity Initially: Mild Severity Currently: Mild Aggravating Factors: Nothing Alleviating Factors: Nothing - Allergies/Home Medications Allergies/Adverse Reactions: Allergies Allergy/AdvReac Type Severity Reaction Status Date / Time haloperidol [From Haldol] Allergy Hallucinati Verified 05/19/19 14:22 ons Penicillins Allergy Hives Verified 05/19/19 14:22 quetiapine [From Seroquel] Allergy Diarrhea Verified 05/19/19 14:22 PMH/Surg Hx/FS Hx/Imm Hx Previously Healthy: Yes Psychological History: Anxiety, Bipolar Disorder - Surgical History Surgical History: Yes Surgery Procedure, Year, and Place: lower leg arterial bipass. T&A. teeth - Family History Known Family History: Positive: Cardiac Disease, Diabetes - Social History Occupation: Retired Alcohol Use: None Substance Use Type: None Smoking Status (MU): Former Smoker When Did the Patient Quit Smoking/Using Tobacco: 2004 - Immunization History Vaccination Up to Date: Yes Review of Systems All Other Systems Reviewed And Are Negative: Yes ENT: Positive: Other - ear wax buildup Is Patient Immunocompromised?: No Physical Exam Triage Information Reviewed: Yes Appearance: Well-Appearing, No Pain Distress, Well-Nourished Vital Signs Reviewed: Yes Eyes: Positive: Conjunctiva Clear ENT: Positive: Other - cerumen impaction both ears Musculoskeletal Exam: Normal Neurological Exam: Normal Neurological: Positive: Alert, Muscle Tone Normal Psychological Exam: Normal Ear Complaint Course/Dx - Course Course Of Treatment: Cerumen was removed successfully from both ears using an ear currette. Pt tolerated the procedure well. Right TM pearly rhodes with good landmarks and light reflex, Unable to visualize the left TM because of a small amount of flaky cerumen in canal. - Differential Dx/Diagnosis Provider Diagnosis: Impacted cerumen of both ears Discharge ED - Sign-Out/Discharge Documenting (check all that apply): Patient Departure All imaging exams completed and their final reports reviewed: No Studies - Discharge Plan Condition: Good Disposition: HOME Patient Education Materials: Cerumen Impaction (ED) Referrals: Camille Light PA [Primary Care Provider] - Additional Instructions: Follow up with your primary care doctor if any concerns. Next time instill ear wax softening drops twice a day for 2 days before you get checked for earwax buildup. - Billing Disposition and Condition Condition: GOOD Disposition: Home - Attestation Statements Provider Attestation: Per institutional requirements, I have reviewed the chart, however, I was not consulted specifically or made aware of this patient by the midlevel provider. I did not personally evaluate, interact with , or disposition this patient.
[2019-05-19 14:21] VITALS: BP 123/84
== END 2019-05-19 14:23 | disposition home or self-care (01) ==
LOC: UCCORT 13:30
DX: H61.23 Impacted cerumen, bilateral (principal); Z88.0 Allergy status to penicillin; Z88.8 Allergy status to other drugs, medicaments and biological substances; Z87.891 Personal history of nicotine dependence
CPT/HCPCS: 69210; 99211; G0463

== ENCOUNTER 2019-05-20 10:27 | Emergency (ER) | payer MEDICARE ==
[2019-05-20 11:22] VITALS: BP 121/69
--- NOTE | 2019-05-20 12:00 | UC ---
Ear Complaint HPI - HPI Summary HPI Summary: Pt was here yesterday and had cerumen removed using ear curette. He still had some flaky cerumen in left ear canal yesterday. He went to [email or web address] yesterday to purchase ear wax softening drops but did not because they were too expensive. He is here today because he still feels like left ear is clogged with cerumen. - History of Current Complaint Chief Complaint: UCEar Stated Complaint: RE-CK EAR WAX Time Seen by Provider: 05/20/19 11:59 Hx Obtained From: Patient Onset/Duration: Gradual Onset Severity Initially: Mild Severity Currently: Mild Pain Intensity: 0 Aggravating Factors: Nothing Alleviating Factors: Nothing - Allergies/Home Medications Allergies/Adverse Reactions: Allergies Allergy/AdvReac Type Severity Reaction Status Date / Time haloperidol [From Haldol] Allergy Hallucinati Verified 05/20/19 11:17 ons Penicillins Allergy Hives Verified 05/20/19 11:17 quetiapine [From Seroquel] Allergy Diarrhea Verified 05/20/19 11:17 Home Medications: Home Medications Aspirin TAB* [Aspirin 325 MG TAB*] 325 mg PO DAILY 05/20/19 [History Confirmed 05/20/19] Glucosamine Sulfate Dipot Chlr [Gnp Glucosamine Maximum S] 1,000 mg PO DAILY 01/31 [History Confirmed 05/20/19] PMH/Surg Hx/FS Hx/Imm Hx Previously Healthy: Yes Endocrine History: Thyroid Disease Psychological History: Anxiety, Bipolar Disorder - Surgical History Surgical History: Yes Surgery Procedure, Year, and Place: lower leg arterial bipass. T&A. teeth - Family History Known Family History: Positive: Cardiac Disease, Diabetes - Social History Alcohol Use: None Substance Use Type: None Smoking Status (MU): Former Smoker When Did the Patient Quit Smoking/Using Tobacco: 2004 - Immunization History Vaccination Up to Date: Yes Review of Systems All Other Systems Reviewed And Are Negative: Yes ENT: Positive: Other - Pt feels like left ear is still plugged but not painful. Is Patient Immunocompromised?: No Physical Exam Triage Information Reviewed: Yes Appearance: Well-Appearing, No Pain Distress, Well-Nourished Vital Signs: Initial Vital Signs Temp 97.8 F 05/20/19 11:19 Pulse 68 05/20/19 11:19 Resp 15 05/20/19 11:19 BP 121/69 05/20/19 11:19 Pulse Ox 98 05/20/19 11:19 Vital Signs Reviewed: Yes ENT: Positive: Other - Right TM pearly rhodes with good landmarks and light reflex , Still with flaky wax in left ear but no impaction visualized. Psychological Exam: Normal Ear Complaint Course/Dx - Course Course Of Treatment: The patient's left ear was lavaged and one piece of wax was removed and patient is feeling a lot better. - Differential Dx/Diagnosis Provider Diagnosis: Excess wax in ear Discharge ED - Sign-Out/Discharge Documenting (check all that apply): Patient Departure All imaging exams completed and their final reports reviewed: No Studies - Discharge Plan Condition: Good Disposition: HOME Patient Education Materials: Cerumen Impaction (ED) Referrals: Camille Light PA [Primary Care Provider] - Additional Instructions: Use ear wax softening drops once a month. If you feel you are developing another wax blockage, use the drops twice a day for 2 days before you are seen by your primary care doctor or your ENT doctor - Billing Disposition and Condition Condition: GOOD Disposition: Home - Attestation Statements Provider Attestation: I was available for consult. This patient was seen by the ANTOINE. The patient was not presented to , seen by or examined by -Marcie Merrill MD
== END 2019-05-20 12:39 | disposition home or self-care (01) ==
LOC: UCCORT 10:27
DX: H61.22 Impacted cerumen, left ear (principal); F31.9 Bipolar disorder, unspecified; F41.9 Anxiety disorder, unspecified; Z87.891 Personal history of nicotine dependence; Z88.0 Allergy status to penicillin; Z79.82 Long term (current) use of aspirin; Z79.899 Other long term (current) drug therapy
CPT/HCPCS: 99212; G0463

== ENCOUNTER 2019-10-06 11:18 | Emergency (ER) | payer MEDICARE ==
--- OUTSIDE RECORDS SUMMARY | 2019-10-06 11:35 | XMS REPORT | Continuity of Care Document ---
:1950 External Reference #:[id number] Author Name Camille Light PA Address [address] [place] [address] Care Team Providers Name Role Phone Camille Light PA - Medical Care Team Information Business Services Tech [phone] Problems Active Problems Provider Date Bipolar disorder Gisella Davies M.D. Onset: 01/17/2012 Hypothyroidism Nahum Lock MD Onset: 10/23/2015 Anxiety Nahum Lock MD Onset: 10/23/2015 Atopic dermatitis Nahum Lock MD Onset: 10/23/2015 Social History Type Date Description Comments Sex Unknown Tobacco Use Start: Unknown End: Former Cigarette Smoker Unknown Smoking Status Reviewed: 08/28/19 Former Cigarette Smoker Smokeless Tobacco Never Used [...] Medications Active Medications SIG Qnty Indications Ordering Date Provider Triamcinolone apply 1 80gm L20.9 Carmenza Mckinney, 07/10/2019 Acetonide application MD 0.025% topically to Ointment affected area neck 2 times per day for 2 weeks. Alclometasone Apply Two Times A 45units L20.9 Carmenza Mckinney, 03/16/2019 Dipropionate Day as Needed For MD 0.05% Up To 14 Days Ointment [place] Carbonate Take Four Capsules 360caps [place], 300mg By Mouth Every Day MD Carina, Capsules PHD Clonazepam 1 tab by mouth 60tabs Carmenza Mckinney, 1mg Tablets twice a day c1 blue tablet please ref #[id number] Synthroid 1 tab by mouth 90tabs Carmenza Mckinney, 88mcg Tablets every day Glucosamine 3 by mouth every Unknown Chondroitin 1500 day Complex 1500Com Capsules Aspirin Adult 1 by mouth every Unknown 325mg day Tablets Multivitamin one tab po daily Unknown Immunizations CPT Code Status Date Vaccine Lot # [id number] Given 04/26/2019 Influenza High Dose 03135 Given 05/16/2018 Influenza Virus Vaccine, Quadrivalent, 36 Mos+, [id number] Given 06/22/2008 Pneumovax Injection Vital Signs Date Vital Result Comment 08/28/2019 3:16pm BP Systolic 138 mmHg BP Diastolic 74 mmHg Body Temperature 96.8 F Heart Rate 72 /min Respiratory Rate 18 /min Height 70.5 inches 5'10.50" Weight 195.12 lb BMI (Body Mass Index) 27.6 kg/m2 BSA (Body Surface Area) 2.08 m2 [place] body weight in kilograms 77 kg O2 % BldC Oximetry 94 % 07/30/2019 9:11am BP Systolic 130 mmHg BP Diastolic 78 mmHg Body Temperature 96.7 F taken twice Heart Rate 78 /min Respiratory Rate 18 /min Height 70.5 inches 5'10.50" Weight 199.00 lb BMI (Body Mass Index) 28.1 kg/m2 BSA (Body Surface Area) 2.09 m2 [place] body weight in kilograms 77 kg O2 % BldC Oximetry 96 % Results Test Acquired Date Facility Test Result H/L Range Note CBC 03/24/2019 [facility] White Blood 7.4 K/uL Normal 3.4-10.5 1 W/Automated [address] [place] [address] [phone] Red Blood Count 4.59 M/uL Normal 4.20-5.80 [...] 33.0-73.0 Lymph % 17.4 % Low 20.0-42.0 Ross % 9.1 % Normal 0.0-10.0 Eo% 7.1 % High 0.0-6.6 Bas% 1.1 % Normal 0.0-1.1 Immature Grans 0.1 % Normal 0.0-5.0 NRBC % 0.0 /100WBC < 10/ 100 WBC Neut# 4.80 K/uL Normal 1.8-7.0 Lymph # 1.28 K/uL Normal 1.0-4.0 Ross # 0.67 K/uL Normal 0.0-0.8 Eos # 0.52 K/uL High 0.0-0.5 Baso # 0.08 K/uL Normal 0.0-0.1 Immature Grans Absolute 0.01 K/uL NRBC # 0.00 K/uL Basic Metabolic Panel 03/24/2019 [facility] Glucose 89 mg/dL Normal 74-106 [address] [place], [place] [id number] [phone] BUN 13 mg/dL Normal 7-18 Creatinine 1.0 mg/dL Normal 0.6-1.3 Glom Filtration Rate, Estimate >60 mL/min >60 If >60 mL/min >60 2 BUN/Creat 13.0 ratio Sodium 138 mmol/L Normal 136-145 Potassium 3.9 mmol/L Normal 3.5-5.1 Chloride 110 mmol/L High 98-107 Carbon Dioxide 19 mmol/L Low 21-32 Anion Gap 9 mEq/L Normal 8-16 Calcium 9.6 mg/dL Normal 8.5-10.1 Occult 03/24/2019 [facility] Stool Occult NEGATIVE Negative 3 Blood,Stool [address] [place] [address] Spec [phone] LDL Cholesterol 03/17/[address] [facility] [address] Cholesterol 164 mg/dL <200 4, 5 Profile [address] [place] [address] [phone] Triglycerides 87 mg/dL <150 6 HDL Cholesterol 43 mg/dL >40 7 LDL-Cholesterol 104 mg/dL < 100 8 Laboratory test 03/17/[address] [facility] [address] Thyroid 0.62 Normal 0.30- 4.[address] Stim uIU/[place] [address] Hormone [phone] 1 MCGUIRE,WEAK,BOWEL ORANGEY RED,WHEN WIPES ITS RED [...] may be found at [email or web address]. 3 Method: [employer] Hemoccult Card 4 E78.5, E03.9 5 Reference [...] (NCEP) Procedures Date Code Description Status 01/25/2007 65577078 Colonoscopy Completed Medical Devices Description No Information Available Encounters Type Date Location Provider Dx Diagnosis Office Visit 07/30/2019 [facility] Camille Light PA F41.9 Anxiety disorder, 9:15a [address] unspecified I10 Essential (primary) hypertension Office Visit 07/10/2019 2:15p [facility] Medicine Camille Light, L20.9 Atopic dermatitis, [address] [place] unspecified Office Visit 05/25/2019 2:15p [facility] Medicine Camille Light, Z12.[address] PA screening for malignant neoplasm of colon H61.23 Impacted cerumen, bilateral R03.0 Elevated blood-pressure reading, w/o diagnosis of htn Office Visit 04/18/2019 1:00p [facility] Medicine Camille Light, D49.[address] [place] unspecified behavior of digestive system R03.0 Elevated blood-pressure reading, w/o diagnosis of htn Office Visit 03/16/2019 11:00a [facility] Medicine Camille Light, Z12.[address] PA screening for malignant neoplasm of colon E03.9 Hypothyroidism, unspecified E78.5 Hyperlipidemia, unspecified L20.9 Atopic dermatitis, unspecified Assessments Date Code Description Provider 08/28/2019 L20.9 Atopic dermatitis, unspecified Camille Light PA 07/30/2019 F41.9 Anxiety disorder, unspecified Camille Light PA 07/30/2019 I10 Essential (primary) hypertension Camille Light PA 07/10/2019 L20.9 Atopic dermatitis, unspecified Camille Light PA 06/04/2019 Z02.9 Encounter for administrative examinations, Camille Light PA unspecified 05/25/2019 Z12.11 Encounter for screening for malignant neoplasm of Camille Light PA colon 05/25/2019 H61.23 Impacted cerumen, bilateral Camille Light PA 05/25/2019 R03.0 Elevated blood-pressure reading, without Camille Light PA diagnosis of hypertension 04/18/2019 D49.0 Neoplasm of unspecified behavior of digestive Camille Light PA system 04/18/2019 R03.0 Elevated blood-pressure reading, without Camille Light PA diagnosis of hypertension 03/16/2019 Z12.11 Encounter for screening for malignant neoplasm of Camille Light PA colon 03/16/2019 E03.9 Hypothyroidism, unspecified Camille Light PA 03/16/2019 E78.5 Hyperlipidemia, unspecified Camille Light PA 03/16/2019 L20.9 Atopic dermatitis, unspecified Camille Light PA Plan of Treatment Future Appointment(s):11/27/2019 1:30 pm - Camille Light PA at [facility] RD08/28/2019 - Camille Light PAL20.9 Atopic dermatitis, unspecifiedComments:Use a Humidifier and push plenty of water. Use Aquaphor frequently through the day. Apply medicated cream as prescribed.This condition will likely continue through the winter. Our goal is to keep it under control.Ointments will work much better than lotions to keep the skin hydrated. Will refer to dermatology. Use T-Gel Shampoo once or twice a week.Referral: Nisha Thorpe M.D., Functional Status Description No Information Available Mental Status Description No Information Available Referrals Refer to Reason for Referral Status Appt Date Nisha Thorpe M.D. Eczematous rash on hands and scalp. Sy Created have been persistent with emollients and mid potency steroid. [address] [place], [place] [phone] David Trotter MD Patient Declined 07/04/[address] [place] [address] [phone]
[2019-10-06 13:20] VITALS: BP 134/84
--- NOTE | 2019-10-06 13:30 | UC ---
Skin Complaint HPI - HPI Summary HPI Summary: Per cotton agent: "Itching over body off/on for 4 months. Pt saw silk opener 10/01/19 who prescribed triamcinolone and scraped area on back and put in stitches. Pt has appt for f/u with derm 10/15/19. Pt wants to know if he still has stitches in place " -there is no dc. no bleeding. he hasnt taken initial bandage off - was told to leave it on until it falls off. - History of Current Complaint Chief Complaint: UCSkin Time Seen by Provider: 10/06/19 13:11 Stated Complaint: SKIN COMPLAINT Pain Intensity: 2 - Allergy/Home Medications Allergies/Adverse Reactions: Allergies Allergy/AdvReac Type Severity Reaction Status Date / Time haloperidol [From Haldol] Allergy Hallucinati Verified 10/06/19 13:21 ons Penicillins Allergy Hives Verified 10/06/19 13:21 quetiapine [From Seroquel] Allergy Diarrhea Verified 10/06/19 13:21 Home Medications: Home Medications Levothyroxine TAB* [Synthroid 88 MCG TAB*] 88 mcg PO DAILY 02/28/18 [History Confirmed 10/06/19] [place] Carbonate [[place] Carbonate 600 mg cap] 600 mg PO BID 02/28/18 [ History Confirmed 10/06/19] clonazePAM [Clonazepam] 1 mg PO BID 02/28/18 [History Confirmed 10/06/19] Aspirin TAB* [Aspirin 325 MG TAB*] 325 mg PO DAILY 05/20/19 [History Confirmed 10/06/19] Glucosamine Sulfate Dipot Chlr [Glucosamine] 1,000 mg PO DAILY 05/20/19 [ History Confirmed 10/06/19] Chondroitin Tab 1 dose PO SEE INSTRUCTIONS 10/06/19 [History Confirmed 10/06/19] Glucosamine/Methylsulfonylmeth [MSM-Glucosamine 250-250 mg Cap] 1 cap PO DAILY 10/06/19 [History Confirmed 10/06/19] PMH/Surg Hx/FS Hx/Imm Hx Previously Healthy: Yes Endocrine History: Hypothyroidism Psychological History: Bipolar Disorder - Surgical History Surgical History: Yes Surgery Procedure, Year, and Place: lower leg arterial bypass with plastic. T& A. teeth - Family History Known Family History: Positive: Cardiac Disease, Diabetes - Social History Alcohol Use: None Substance Use Type: None Smoking Status (MU): Former Smoker When Did the Patient Quit Smoking/Using Tobacco: 2004 - Immunization History Vaccination Up to Date: Yes Review of Systems All Other Systems Reviewed And Are Negative: Yes Constitutional: Positive: Negative Skin: Positive: Other - see above Eyes: Positive: Negative ENT: Positive: Negative Respiratory: Positive: Negative Cardiovascular: Positive: Negative Gastrointestinal: Positive: Negative Psychological: Positive: Negative Is Patient Immunocompromised?: No Physical Exam Triage Information Reviewed: Yes Appearance: Well-Appearing, No Pain Distress, Well-Nourished Vital Signs: Initial Vital Signs Temp 99.5 F 10/06/19 13:01 Pulse 76 10/06/19 13:01 Resp 20 10/06/19 13:01 BP 134/84 10/06/19 13:01 Pulse Ox 99 10/06/19 13:01 Respiratory Exam: Normal Respiratory: Positive: Lungs clear Cardiovascular Exam: Normal Cardiovascular: Positive: RRR Skin: Positive: Other - rt low back w/ bandage intact. when uncovered it reveals a nicely healing scar w/ 2 sutures. no erythema, no dc. non tender. Course/Dx - Course Course Of Treatment: 2 intact sutures. he declines need for removal as the derm will be removing them at his scheduled upcoming appt. - Differential Diagnoses - Skin Complaint Differential Diagnoses: Other - suture check - Diagnoses Provider Diagnosis: Suture check Discharge ED - Sign-Out/Discharge Documenting (check all that apply): Patient Departure All imaging exams completed and their final reports reviewed: No Studies - Discharge Plan Condition: Stable Disposition: HOME Patient Education Materials: Care For Your Stitches (ED) Referrals: Camille Light PA [Primary Care Provider] - Additional Instructions: Please keep your scheduled follow up appt with your silk opener. - Billing Disposition and Condition Condition: STABLE Disposition: Home
== END 2019-10-06 13:50 | disposition home or self-care (01) ==
LOC: UCCORT 11:18
DX: Z48.00 Encounter for change or removal of nonsurgical wound dressing (principal); F31.9 Bipolar disorder, unspecified; E03.9 Hypothyroidism, unspecified; Z87.891 Personal history of nicotine dependence; Z79.890 Hormone replacement therapy; Z88.0 Allergy status to penicillin; Z88.8 Allergy status to other drugs, medicaments and biological substances; Z79.82 Long term (current) use of aspirin
CPT/HCPCS: 99211; G0463

== ENCOUNTER 2019-11-17 12:19 | Emergency (ER) | payer MEDICARE ==
[2019-11-17 12:52] VITALS: BP 141/76
--- OUTSIDE RECORDS SUMMARY | 2019-11-17 13:02 | XMS REPORT | Continuity of Care Document ---
:1950 External Reference #:[id number] Author Name Camille Light PA (transmitted by agent of provider Meera Weinberg) Address [address] [place] [address] Care Team Providers Name Role Phone Camille Light PA - Medical Care Team Information Computer Repair Engineer [phone] Problems Active Problems Provider Date Bipolar disorder Gisella Davies M.D. Onset: 01/17/2012 Hypothyroidism Nahum Lock MD Onset: 10/23/2015 Anxiety Nahum Lock MD Onset: 10/23/2015 Atopic dermatitis Nahum Lock MD Onset: 10/23/2015 Social History Type Date Description Comments Sex Unknown Tobacco Use Start: Unknown End: Former Cigarette Smoker Unknown Smoking Status Reviewed: 10/30/19 Former Cigarette Smoker Smokeless Tobacco Never Used [...] Medications SIG Qnty Indications Ordering Date Provider Clonazepam 1 tab by mouth at 75tabs Carmenza Mckinney, 10/26/2019 0.5mg bedtime , 1/2 po MD Tablets q 3 hours overnight as needed upon waking. Ref #[id number] Melatonin 1-2 tab as needed 60tabs G47.9 Carmenza Mckinney, 10/26/2019 3mg Tablets at bedtime [place] Carbonate take four 360caps Carmenza Mckinney, 300mg capsules by mouth MD Capsules every day Synthroid 1 tab by mouth 90tabs HankCarmenza, 88mcg Tablets every day Aspirin Adult 1 by mouth every Unknown 325mg day Tablets Multivitamin one tab po daily Unknown History Medications Triamcinolone apply 1 application 80gm L20.9 Carmenza Mckinney, 07/10/2019 - Acetonide topically to MD 10/26/2019 0.025% affected area neck Ointment 2 times per day for 2 weeks. Immunizations CPT Code Status Date Vaccine Lot # [id number] Given 04/26/2019 Influenza High Dose 21552 Given 05/16/2018 Influenza Virus Vaccine, Quadrivalent, 36 Mos+, [id number] .[id number] 76554 Given 06/22/2008 Pneumovax Injection Vital Signs Date Vital Result Comment 10/30/2019 3:07pm BP Systolic 146 mmHg BP Diastolic 80 mmHg Body Temperature 97.0 F Heart Rate 81 /min Respiratory Rate 18 /min Height 70.5 inches 5'10.50" Weight 198.25 lb BMI (Body Mass Index) 28.0 kg/m2 BSA (Body Surface Area) 2.09 m2 [place] body weight in kilograms 77 kg O2 % BldC Oximetry 98 % 10/26/2019 2:09pm BP Systolic 128 mmHg BP Diastolic 62 mmHg Body Temperature 97.6 F Heart Rate 89 /min Respiratory Rate 18 /min Height 70.5 inches 5'10.50" Weight 199.12 lb BMI (Body Mass Index) 28.2 kg/m2 BSA (Body Surface Area) 2.09 m2 [place] body weight in kilograms 77 kg O2 % BldC Oximetry 94 % Results Description No Information Available Procedures Date Code Description Status 01/25/2007 [id number] Colonoscopy Completed Medical Devices Description No Information Available Encounters Type Date Location Provider Dx Diagnosis Office Visit 10/30/2019 Camille Hickey PA F41.9 Anxiety disorder, 3:10p [address] unspecified G47.9 Sleep disorder, unspecified Office Visit 10/26/2019 2:10p Camille Hickey, F41.9 Anxiety disorder, [place] SINGER unspecified G47.9 Sleep disorder, unspecified Office Visit 10/09/2019 2:10p Camille Hickey, L20.9 Atopic dermatitis, [address] [place] unspecified F41.9 Anxiety disorder, unspecified I10 Essential (primary) hypertension Office Visit 08/28/2019 3:20p Family Medicine Camille Light, L20.9 Atopic dermatitis, [address] [place] unspecified Office Visit 07/30/2019 9:15a Family Medicine Camille Light, F41.9 Anxiety disorder, [address] [place] unspecified I10 Essential (primary) hypertension Office Visit 07/10/2019 2:15p Family Medicine Camille Light, L20.9 Atopic dermatitis, [address] [place] unspecified Office Visit 05/25/2019 2:15p Family Medicine Camille Light, Z12.[address] PA screening for malignant neoplasm of colon H61.23 Impacted cerumen, bilateral R03.0 Elevated blood-pressure reading, w/o diagnosis of htn Assessments Date Code Description Provider 10/30/2019 F41.9 Anxiety disorder, unspecified Camille Light, PA 10/30/2019 G47.9 Sleep disorder, unspecified Camille Light, PA 10/26/2019 F41.9 Anxiety disorder, unspecified Camille Light, PA 10/26/2019 G47.9 Sleep disorder, unspecified Camille Light, PA 10/09/2019 L20.9 Atopic dermatitis, unspecified Camille Light, PA 10/09/2019 F41.9 Anxiety disorder, unspecified Camille Light, PA 10/09/2019 I10 Essential (primary) hypertension Camille Light, PA 08/28/2019 L20.9 Atopic dermatitis, unspecified Camille Light, PA 07/30/2019 F41.9 Anxiety disorder, unspecified Camille Light, PA 07/30/2019 I10 Essential (primary) hypertension Camille Light, PA 07/10/2019 L20.9 Atopic dermatitis, unspecified Camille Light, PA 06/04/2019 Z02.9 Encounter for administrative examinations, Camille Light PA unspecified 05/25/2019 Z12.11 Encounter for screening for malignant neoplasm of Camille Light PA colon 05/25/2019 H61.23 Impacted cerumen, bilateral Camille Light, PA 05/25/2019 R03.0 Elevated blood-pressure reading, without Camille Light PA diagnosis of hypertension Plan of Treatment Future Appointment(s):11/27/2019 1:30 pm - Camille Light PA at [facility] RD10/30/2019 - Camille Light, PAF41.9 Anxiety disorder, unspecifiedComments:Medication use reviewed. We are tapering off the Clonazepam gradually. Will reduce dose to 0.5mg. Take 1 tab at bedtime. Take 1/2 tab at 11 , 2 and 4. Please call if you have concerns or questions. Otherwise follow up in 1 month to re-evaluate.G47.9 Sleep disorder, unspecifiedComments:as above. Functional Status Description No Information Available Mental Status Description No Information Available Referrals Refer to Reason for Referral Status Appt Date Nisha Thorpe M.D. Eczematous rash on hands and scalp. Sy Closed 05/2020 have been persistent with emollients and mid potency steroid. [address] [place] [address] [phone]
--- OUTSIDE RECORDS SUMMARY | 2019-11-17 13:02 | XMS REPORT | Continuity of Care Document ---
:1950 External Reference #:[id number] Author Name Camille Light PA (transmitted by agent of provider Carrol Pang) Address [address] [place] [address] Care Team Providers Name Role Phone Camille Light PA - Medical Care Team Information Dinkey Mechanic [phone] Problems Active Problems Provider Date Bipolar disorder [...] hours overnight as needed upon waking. Ref #[id number] Melatonin 1-2 tab as needed 60tabs G47.9 Carmenza Mckinney, 10/26/2019 3mg Tablets at bedtime [place] Carbonate take four 360caps Carmenza Mckinney, 300mg capsules by mouth Capsules every day Synthroid 1 tab by mouth 90tabs Carmenza Mckinney, 88mcg Tablets every day Aspirin Adult 1 by mouth every Unknown 325mg day Tablets Multivitamin one tab po daily Unknown History Medications Triamcinolone apply 1 application 80gm L20.9 Carmenza Mckinney, 07/10/2019 - Acetonide topically to MD 10/26/2019 0.025% affected area neck Ointment 2 times per day for 2 weeks. Immunizations CPT Code Status Date Vaccine Lot # [id number] Given 04/26/2019 Influenza High Dose 34151 Given 05/16/2018 Influenza Virus Vaccine, Quadrivalent, 36 Mos+, [id number] .[id number] 07909 Given 06/22/2008 Pneumovax Injection Vital Signs Date Vital Result Comment 10/30/2019 3:07pm BP Systolic 146 mmHg BP Diastolic 80 mmHg Body Temperature 97.0 F Heart Rate 81 /min Respiratory Rate 18 /min Height 70.5 inches 5'10.50" Weight 198.25 lb BMI (Body Mass Index) 28.0 kg/m2 BSA (Body Surface Area) 2.09 m2 [place] body weight in kilograms 77 kg O2 % BldC Oximetry 98 % 10/26/2019 2:09pm BP Systolic 128 mmHg BP Diastolic 62 mmHg Body Temperature 97.6 F Heart Rate 89 /min Respiratory Rate 18 /min Height 70.5 inches 5'10.50" Weight 199.12 lb BMI (Body Mass Index) 28.2 kg/m2 BSA (Body Surface Area) 2.09 m2 [place] body weight in kilograms 77 kg O2 % BldC Oximetry 94 % Results Description No Information Available Procedures Date Code Description Status 01/25/2007 82976511 Colonoscopy Completed Medical Devices Description No Information Available Encounters Type Date Location Provider Dx Diagnosis Office Visit 10/26/2019 Camille Hickey PA F41.9 Anxiety disorder, 2:10p [address] unspecified G47.9 Sleep disorder, unspecified Office Visit 10/09/2019 2:10p Camille Hickey, L20.9 Atopic dermatitis, [address] [place] unspecified F41.9 Anxiety disorder, unspecified I10 Essential (primary) hypertension Office Visit 08/28/2019 3:20p Camille Hickey, L20.9 Atopic dermatitis, [address] [place] unspecified Office Visit 07/30/2019 9:15a [facility] Camille Light, F41.9 Anxiety disorder, [facility] [place] unspecified I10 Essential (primary) hypertension Office Visit 07/10/2019 2:15p [facility] Camille Light, L20.9 Atopic dermatitis, [facility] [place] unspecified Office Visit 05/25/2019 2:15p [facility] Camille Light, Z12.11 Encounter for [facility] screening for malignant neoplasm of colon H61.23 [...] PA 10/09/2019 I10 Essential (primary) hypertension Camille Light PA 08/28/2019 L20.9 Atopic dermatitis, unspecified Camille [...] 1:30 pm - Camille Light PA at [facility]2019 - Camille Light, PAF41.9 Anxiety disorder, unspecifiedComments:Medication use reviewed. We are tapering off the Clonazepam gradually. Will reduce dose to 0.5mg. Take 1 tab at bedtime. Take 1/2 tab at 11 , 2 and 4. Please call if you have concerns or questions. Otherwise follow up in 1 month to re-evaluate.G47.9 Sleep disorder, unspecified Functional Status Description No Information Available Mental Status Description No Information Available Referrals Refer to Reason for Referral Status Appt Date Nisha Thorpe M.D. Eczematous rash on hands and scalp. Sy Closed 05/2020 have been persistent with emollients and mid potency steroid. [address] [place] [address] [phone]
--- OUTSIDE RECORDS SUMMARY | 2019-11-17 13:02 | XMS REPORT | Continuity of Care Document ---
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 Onset: 01/17/2012 Hypothyroidism Nahum Lock MD Onset: 10/23/2015 Anxiety Nahum Lock MD Onset: 10/23/2015 Atopic dermatitis Nahum Lock MD Onset: 10/23/2015 Social History Type Date Description Comments Sex Unknown Tobacco Use Start: Unknown End: Former Cigarette Smoker Unknown Smoking Status Reviewed: 10/26/19 Former Cigarette Smoker Smokeless Tobacco Never Used [...] hours overnight as needed upon waking. Ref #[id number] Melatonin 1-2 tab as needed 60tabs G47.9 Carmenza Mckinney, 10/26/2019 3mg Tablets at bedtime [place] Carbonate Take Four 360caps Carina Griffith, 300mg Capsules By Mouth , PHD Capsules Every Day Synthroid 1 tab by mouth 90tabs Carmenza Mckinney, 88mcg Tablets every day Aspirin Adult 1 by mouth every Unknown 325mg day Tablets Multivitamin one tab po daily Unknown History Medications Triamcinolone apply 1 application 80gm L20.9 [place], 07/10/2019 - Acetonide topically to MD 10/26/2019 0.025% affected area neck Ointment 2 times per day for 2 weeks. Immunizations CPT Code Status Date Vaccine Lot # [id number] Given 04/26/2019 Influenza High Dose 56951 Given 05/16/2018 Influenza Virus Vaccine, Quadrivalent, 36 Mos+, [id number] .5ML 49482 Given 06/22/2008 Pneumovax Injection Vital Signs Date Vital Result Comment 10/26/2019 2:09pm BP Systolic 128 mmHg BP Diastolic 62 mmHg Body Temperature 97.6 F Heart Rate 89 /min Respiratory Rate 18 /min Height 70.5 inches 5'10.50" Weight 199.12 lb BMI (Body Mass Index) 28.2 kg/m2 BSA (Body Surface Area) 2.09 m2 [place] body weight in kilograms 77 kg O2 % BldC Oximetry 94 % 10/09/2019 1:55pm BP Systolic 124 mmHg BP Diastolic 70 mmHg Body Temperature 97.4 F Heart Rate 78 /min Respiratory Rate 18 /min Height 70.5 inches 5'10.50" Weight 200.50 lb BMI (Body Mass Index) 28.4 kg/m2 BSA (Body Surface Area) 2.10 m2 [place] body weight in kilograms 77 kg O2 % BldC Oximetry 96 % Results Description No Information Available Procedures Date Code Description Status 01/25/2007 [id number] Colonoscopy Completed Medical Devices Description No Information [...] Camille Hickey, L20.9 Atopic dermatitis, [address] [place] unspecified Office Visit 07/30/2019 9:15a [facility] [place] [facility] Medicine Camille Light, F41.9 Anxiety disorder, [facility] PA unspecified I10 Essential (primary) hypertension Office Visit 07/10/2019 2:15p [facility] Medicine Camille Light, L20.9 Atopic dermatitis, [facility] PA unspecified Office Visit 05/25/2019 2:15p [facility] Camille Light, Z12.11 Encounter for [facility] [place] [place] screening for malignant neoplasm of colon H61.23 Impacted cerumen, bilateral R03.0 Elevated blood-pressure reading, w/o diagnosis of htn Assessments Date Code Description Provider 10/26/2019 F41.9 Anxiety disorder, unspecified Camille Light PA 10/26/2019 G47.9 Sleep disorder, unspecified Camille Light PA 10/09/2019 L20.9 Atopic dermatitis, unspecified Camille Light PA 10/09/2019 F41.9 Anxiety disorder, unspecified Camille Light PA 10/09/2019 I10 Essential (primary) hypertension Camille Light PA 08/28/2019 L20.9 Atopic dermatitis, unspecified Camille Light [...] 1:30 pm - Camille Light PA at [facility]10/26/2019 - Camille Light, PAF41.9 Anxiety disorder, unspecifiedComments:Patient has been taking medication q 3 hours overnight. He takes on at bedtime and upon waking q 3 hours overnight. He has done this for years. He cannot return to sleep without it. We would like to try to transition off of this. See below for plan.G47.9 Sleep disorder, unspecifiedNew Medication: Melatonin 3 mg - 1-2 tab as needed at bedtimeComments:We will have to gradually taper off the Clonazepam. Will reduce the dose to 1/2 mg. Take 2 tabs at bedtime. Take a 1/2 tab through the night, every 3 hours, upon waking. At the same time, I will have you start taking Melatonin at bedtime to see if we can help with the sleep this way as well. Functional Status Description No Information Available Mental Status Description No Information Available Referrals Refer to Reason for Referral Status Appt Date Nisha Thorpe M.D. Eczematous rash on hands and scalp. Sy Closed 05/2020 have been persistent with emollients and mid potency steroid. [address] [place] [address] [phone]
--- OUTSIDE RECORDS SUMMARY | 2019-11-17 13:02 | XMS REPORT | Continuity of Care Document ---
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 Onset: 01/17/2012 Hypothyroidism Nahum Lock MD Onset: 10/23/2015 Anxiety Nahum Lock MD Onset: 10/23/2015 Atopic dermatitis Nahum Lock MD Onset: 10/23/2015 Social History Type Date Description Comments Sex Unknown Tobacco Use Start: Unknown End: Former Cigarette Smoker Unknown Smoking Status Reviewed: 10/09/19 Former Cigarette Smoker Smokeless Tobacco Never Used [...] MD 0.05% Up To [address] [place] Carbonate Take Four Capsules 360caps [place], 300mg By Mouth Every Day MD Carina, Capsules PHD Clonazepam 1 tab by mouth 60tabs Carmenza Mckinney, 1mg Tablets twice a day c1 blue tablet please ref # [id number] Synthroid 1 tab by mouth 90tabs Carmenza Mckinney, 88mcg Tablets every day Glucosamine 3 by mouth every Unknown Chondroitin 1500 day Complex 1500Com Capsules Aspirin Adult 1 by mouth every Unknown 325mg day Tablets Multivitamin one tab po daily Unknown Immunizations CPT Code Status Date Vaccine Lot # [id number] Given 04/26/2019 Influenza High Dose 37449 Given 05/16/2018 Influenza Virus Vaccine, Quadrivalent, 36 Mos+, [id number] .5ML 55105 Given 06/22/2008 Pneumovax Injection Vital Signs Date Vital Result Comment 10/09/2019 1:55pm BP Systolic 124 mmHg BP Diastolic 70 mmHg Body Temperature 97.4 F Heart Rate 78 /min Respiratory Rate 18 /min Height 70.5 inches 5'10.50" Weight 200.50 lb BMI (Body Mass Index) 28.4 kg/m2 BSA (Body Surface Area) 2.10 m2 [place] body weight in kilograms 77 kg O2 % BldC Oximetry 96 % 08/28/2019 3:16pm BP Systolic 138 mmHg BP Diastolic 74 mmHg Body Temperature 96.8 F Heart Rate 72 /min Respiratory Rate 18 /min Height 70.5 inches 5'10.50" Weight 195.12 lb BMI (Body Mass Index) 27.6 kg/m2 BSA (Body Surface Area) 2.08 m2 [place] body weight in kilograms 77 kg O2 % BldC Oximetry 94 % Results Description No Information Available Procedures Date Code Description Status 01/25/2007 [id number] Colonoscopy Completed Medical Devices Description No Information Available Encounters Type Date Location Provider Dx Diagnosis Office Visit 08/28/2019 Camille Hickey PA L20.9 Atopic dermatitis, 3:20p [address] unspecified Office Visit 07/30/2019 Camille Hickey PA F41.9 Anxiety disorder, 9:15a [address] unspecified I10 Essential (primary) hypertension Office Visit 07/10/2019 2:15p Camille Hickey, L20.9 Atopic dermatitis, [facility] [place] unspecified Office Visit 05/25/2019 2:15p Camille Hickey, Z12.[address] [facility] screening for malignant neoplasm of colon H61.23 Impacted cerumen, bilateral R03.0 Elevated blood-pressure reading, w/o diagnosis of htn Office Visit 04/18/2019 1:00p [facility] Camille Light, D49.[address] [facility] unspecified behavior of digestive system R03.0 Elevated blood-pressure reading, w/o diagnosis of htn Assessments Date Code Description Provider 10/09/2019 L20.9 Atopic dermatitis, unspecified Camille Light [...] 1:30 pm - Camille Light PA at [facility]10/09/2019 - Camille Light PAL20.9 Atopic dermatitis, unspecifiedComments:Skin condition has improved. Incision is healing well. Follow up as needed.F41.9 Anxiety disorder, unspecifiedComments:Increased stress lately. We discussed this and you should continue to work on stress reduction. I amglad that prayer is helpful. Call if symptoms should worsen.I10 Essential (primary) hypertensionComments:BP is at goal <130/90. Cont current treatment of medication, low salt diet and regular exercise. Functional Status Description No Information Available Mental Status Description No Information Available Referrals Refer to Reason for Referral Status Appt Date Nisha Thorpe M.D. Eczematous rash on hands and scalp. Sy Closed 05/2020 have been persistent with emollients and mid potency steroid. [address] [place] [address] [phone]
--- OUTSIDE RECORDS SUMMARY | 2019-11-17 13:02 | XMS REPORT | Continuity of Care Document ---
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 Ref #[id number] Melatonin 1-2 tab as needed 60tabs G47.9 Carmenza Mckinney, 10/26/2019 3mg Tablets at bedtime [place] Carbonate Take Four 360caps Carina Griffith, 300mg [...] CPT Code Status Date Vaccine Lot # [id number] Given 04/26/2019 Influenza High Dose 58493 Given 05/16/2018 Influenza Virus Vaccine, Quadrivalent, 36 Mos+, [id number] .5ML 29540 Given 06/22/2008 Pneumovax Injection Vital Signs Date Vital Result Comment 10/26/2019 2:09pm BP Systolic 128 mmHg BP Diastolic 62 mmHg Body Temperature 97.6 F Heart Rate 89 /min Respiratory Rate 18 /min Height 70.5 inches 5'10.50" Weight 199.12 lb BMI (Body Mass Index) 28.2 kg/m2 BSA (Body Surface Area) 2.09 m2 [place] body weight in kilograms 77 kg O2 % BldC Oximetry 94 % 10/09/2019 1:55pm BP Systolic 124 mmHg BP Diastolic 70 mmHg Body Temperature 97.4 F Heart Rate 78 /min Respiratory Rate 18 /min Height 70.5 inches 5'10.50" Weight 200.50 lb BMI (Body Mass Index) 28.4 kg/m2 BSA (Body Surface Area) 2.10 m2 [place] body weight in kilograms 77 kg O2 % BldC Oximetry 96 % Results Description No Information Available Procedures Date Code Description Status 01/25/2007 [id number] Colonoscopy Completed Medical Devices Description No Information [...] RD PA unspecified Office Visit 07/30/2019 9:15a [facility] Medicine Camille Light, F41.9 Anxiety disorder, [facility] [place] unspecified I10 Essential (primary) hypertension Office Visit 07/10/2019 2:15p [facility] Camille Light, L20.9 Atopic dermatitis, [facility] [place] unspecified Office Visit 05/25/2019 2:15p [facility] Camille Light, Z12.11 Encounter for [facility] screening for malignant neoplasm of colon H61.23 [...] 1:30 pm - Camille Light PA at [facility]10/26/2019 - Camille Light, PAF41.9 Anxiety disorder, unspecifiedComments:Patient [...] persistent with emollients and mid potency steroid. [address] [place] [address] [phone]
--- NOTE | 2019-11-17 13:04 | UC ---
Ear Complaint HPI - HPI Summary HPI Summary: 69 yo man with bilateral plugged ears with blunting of hearing. No associated respiratory symptoms, vertigo or headache. - History of Current Complaint Chief Complaint: UCEar Stated Complaint: BOTH EARS PLUGGED Time Seen by Provider: 11/17/19 12:42 Hx Obtained From: Patient Onset/Duration: Gradual Onset, Lasting Days Severity Initially: Mild Severity Currently: Mild Pain Intensity: 0 Associated Signs/Symptoms: Positive: Hearing Loss. Negative: Discharge, Trauma to Ear, URI Symptoms - Allergies/Home Medications Allergies/Adverse Reactions: Allergies Allergy/AdvReac Type Severity Reaction Status Date / Time haloperidol [From Haldol] Allergy Hallucinati Verified 11/17/19 12:44 ons Penicillins Allergy Hives Verified 11/17/19 12:44 quetiapine [From Seroquel] Allergy Diarrhea Verified 11/17/19 12:44 Home Medications: Home Medications Levothyroxine TAB* [Synthroid 88 MCG TAB*] 88 mcg PO DAILY 02/28/18 [History Confirmed 11/17/19] [place] Carbonate [[place] Carbonate 600 mg cap] 600 mg PO BID 02/28/18 [ History Confirmed 11/17/19] clonazePAM [Clonazepam] 1 mg PO BID 02/28/18 [History Confirmed 11/17/19] Aspirin TAB* [Aspirin 325 MG TAB*] 325 mg PO DAILY 05/20/19 [History Confirmed 11/17/19] PMH/Surg Hx/FS Hx/Imm Hx Endocrine History: Hypothyroidism Psychological History: Bipolar Disorder - Surgical History Surgical History: Yes Surgery Procedure, Year, and Place: lower leg arterial bypass with plastic. T& A. teeth - Family History Known Family History: Positive: Cardiac Disease, Diabetes - Social History Alcohol Use: None Substance Use Type: None Smoking Status (MU): Former Smoker When Did the Patient Quit Smoking/Using Tobacco: 2004 - Immunization History Vaccination Up to Date: Yes Review of Systems All Other Systems Reviewed And Are Negative: Yes Constitutional: Positive: Negative Skin: Positive: Negative Eyes: Positive: Negative, Diplopia Respiratory: Positive: Negative Cardiovascular: Positive: Negative Gastrointestinal: Positive: Negative Genitourinary: Positive: Negative Motor: Positive: Negative Neurovascular: Positive: Negative Musculoskeletal: Positive: Negative Neurological/Mental Status: Positive: Negative Psychological: Positive: Negative Is Patient Immunocompromised?: No Physical Exam Triage Information Reviewed: Yes Appearance: Well-Appearing, No Pain Distress Vital Signs: Initial Vital Signs Temp 99.1 F 11/17/19 12:45 Pulse 66 11/17/19 12:45 Resp 16 11/17/19 12:45 BP 141/76 11/17/19 12:45 Pulse Ox 98 11/17/19 12:45 ENT: Positive: Pharynx normal, Other - TM's with bilateral cerumen. Neck exam: Normal Respiratory Exam: Normal Cardiovascular Exam: Normal Re-Evaluation - Re-Evaluation First Eval Re-Evaluation Time: 13:30 Change: Improved - removed residual cerumen from the right ear canal with lighted curette. Comment: removed plug of cerumen from right ear canal post flushing with curette. Both TM's normal post procedure. Ear Complaint Course/Dx - Course Course Of Treatment: Discussed prevention of cerumen accumulation. - Differential Dx/Diagnosis Differential Diagnosis/HQI/PQRI: Cerumen Impaction, Otitis Media Provider Diagnosis: Bilateral impacted cerumen Discharge ED - Sign-Out/Discharge Documenting (check all that apply): Patient Departure All imaging exams completed and their final reports reviewed: No Studies - Discharge Plan Condition: Good Disposition: HOME Patient Education Materials: Earache (ED) Referrals: Camille Light PA [Primary Care Provider] - Additional Instructions: The cause of your plugged ears was ear wax. To prevent ear wax accumulation, you might try use of oil drops (mineral oil, olive oil etc) --placing a few drops in the ear canal at night with a small plug of cotton. In the morning, flush in diluted hydrogen peroxide. This will drain the softened wax. This can be done every 2 weeks or so to prevent the impaction. - Billing Disposition and Condition Condition: GOOD Disposition: Home
== END 2019-11-17 13:45 | disposition home or self-care (01) ==
LOC: UCCORT 12:19
DX: H61.23 Impacted cerumen, bilateral (principal); E03.9 Hypothyroidism, unspecified; F31.9 Bipolar disorder, unspecified; Z79.890 Hormone replacement therapy; Z79.899 Other long term (current) drug therapy; Z88.0 Allergy status to penicillin; Z88.8 Allergy status to other drugs, medicaments and biological substances; Z87.891 Personal history of nicotine dependence
CPT/HCPCS: 69210; 99211; 99213; G0463